=== PATIENT | female | born 1950 | race Caucasian/White ===

== ENCOUNTER 2018-06-18 11:03 | Inpatient (IN) ==
[2018-06-18] MEDS ORDERED: methylPREDNISolone SOD SUC 40 MG/1 ML VIAL IV STA (12:14)
[2018-06-18] MEDS ORDERED: ALBUTEROL/IPRATROPIUM 3 ML NEB RESP TX STA (12:14)
[2018-06-18 12:49] LABS: Basophils % 0.3 % (0.0-0.8); Hematocrit 31.3 VOL% (35.7-47.0); Hemoglobin 9.8 GM/DL (12.0-16.0); Immature Granulocytes % 0.9 %; Immature Granulocytes Absolute 0.13 #; Lymphocytes # 1.5 10*3/uL (1.4-4.0); Lymphocytes % 10.5 % (21.3-54.2); Mean Corpuscular HGB Conc 31.3 GM/DL (32-36); Mean Corpuscular Volume 94.3 FL (87-102); Mean Platelet Volume 12.2 FL (9.6-12.0); Monocytes % 6.9 % (1.7-12.7); Neutrophils % 81.4 % (38.7-73.9); Platelet Count 156 T/CUMM (130-400); Red Blood Count 3.32 MC/CUMM (3.8-5.5); Red Cell Distribution Width 13.8 % (9.3-17.3); White Blood Count 14.1 T/CUMM (4-12)
[2018-06-18 13:03] LABS: Calcium 8.4 MG/DL (8.5-10.1); Osmolality,Calculated 284.8 MOS/KG (273-304)
[2018-06-18] MEDS ORDERED: AZITHROMYCIN INJ 500 MG in SODIUM CHLORIDE 0.9% 250 ML IV STA (14:36)
[2018-06-18] MEDS ORDERED: cefTRIAXone 1,000 MG in SODIUM CHLORIDE 0.9% 100 ML IV STA (14:36)
[2018-06-18 15:35] LABS: Basophils % 0.2 % (0.0-0.8); Hematocrit 27.9 VOL% (35.7-47.0); Hemoglobin 8.6 GM/DL (12.0-16.0); Immature Granulocytes % 1.8 %; Immature Granulocytes Absolute 0.23 #; Lymphocytes # 0.9 10*3/uL (1.4-4.0); Lymphocytes % 7.2 % (21.3-54.2); Mean Corpuscular HGB Conc 30.8 GM/DL (32-36); Mean Corpuscular Volume 94.6 FL (87-102); Mean Platelet Volume 11.4 FL (9.6-12.0); Monocytes % 4.4 % (1.7-12.7); Neutrophils % 86.4 % (38.7-73.9); Platelet Count 134 T/CUMM (130-400); Red Blood Count 2.95 MC/CUMM (3.8-5.5); Red Cell Distribution Width 13.6 % (9.3-17.3); White Blood Count 12.8 T/CUMM (4-12)
[2018-06-18] MEDS ORDERED: ONDANSETRON 4 MG/2 ML VIAL IV PRN (15:44)
[2018-06-18] MEDS ORDERED: guaiFENesin/DM ER 600-30 MG TABLET PO PRN (15:44)
[2018-06-18] MEDS ORDERED: GLUCAGON 1 MG VIAL IM PRN (15:44)
[2018-06-18] MEDS ORDERED: DEXTROSE 50% 25 GM/50 ML SYRINGE IV PRN (15:44)
[2018-06-18] MEDS ORDERED: ACETAMINOPHEN 325 MG TABLET PO PRN (15:44)
[2018-06-18] MEDS ORDERED: ALBUTEROL/IPRATROPIUM 3 ML NEB RESP TX PRN (15:44)
[2018-06-18 15:53] LABS: Anisocytosis 3+; Platelet Estimate Adequate; Polychromasia 1+
[2018-06-18] MEDS: SODIUM CHLORIDE 0.9% 1,000 ML IV SCH (16:21)
[2018-06-18 16:26] LABS: Folate 10.1 NG/ML (5.4-24.0); Vitamin B12 238 PG/ML (211-911)
[2018-06-18 16:43] LABS: Sedimentation Rate-Westergren 124 MM/HR (0-30)
[2018-06-18 17:08] LABS: % Iron Saturation 6.8 % (18-50)
[2018-06-18] MEDS: INSULIN LISPRO 100 UNIT/ML SUBCUT SCH ×2 (17:37→20:32)
[2018-06-18] MEDS: CYANOCOBALAMIN 1000 MCG/1 ML VIAL IM SCH (18:24)
[2018-06-19] MEDS: SODIUM CHLORIDE 0.9% 1,000 ML IV SCH ×3 (02:58→23:32)
[2018-06-19 05:41] LABS: Basophils % 0.1 % (0.0-0.8); Hematocrit 27.3 VOL% (35.7-47.0); Hemoglobin 8.2 GM/DL (12.0-16.0); Immature Granulocytes Absolute 0.13 #; Lymphocytes % 7.4 % (21.3-54.2); Mean Corpuscular Volume 96.8 FL (87-102); Mean Platelet Volume 12.3 FL (9.6-12.0); Monocytes % 3.5 % (1.7-12.7); Platelet Count 144 T/CUMM (130-400); Red Blood Count 2.82 MC/CUMM (3.8-5.5); Red Cell Distribution Width 13.6 % (9.3-17.3)
[2018-06-19 06:09] LABS: Calcium 8.4 MG/DL (8.5-10.1); Osmolality,Calculated 296.4 MOS/KG (273-304); Thyroid Stimulating Hormone 1.28 uIU/ml (0.358-3.74)
[2018-06-19 06:39] LABS: Anisocytosis 1+; Lymphocytes 6 % (20-55); Platelet Estimate Adequate; Segmented Neutrophils 90 % (50-85); Total Cells Counted 100
[2018-06-19] MEDS: INSULIN LISPRO 100 UNIT/ML SUBCUT SCH ×4 (08:46→21:05)
[2018-06-19] MEDS ORDERED: FERROUS SULFATE 325 MG TABLET PO SCH (09:00)
[2018-06-19] MEDS ORDERED: LOSARTAN 50 MG TABLET PO SCH (09:00)
[2018-06-19] MEDS: ROSUVASTATIN 10 MG TABLET PO SCH (09:51)
[2018-06-19] MEDS: PANTOPRAZOLE 40 MG TABLET PO SCH (09:52)
[2018-06-19] MEDS: ISOSORBIDE MONONITRATE 30 MG TABLET PO SCH (09:52)
[2018-06-19] MEDS: IRON SUCROSE 200 MG in SODIUM CHLORIDE 0.9% 100 ML IV SCH (09:53)
[2018-06-19] MEDS: amLODIPine 10 MG TABLET PO SCH (09:53)
[2018-06-19] MEDS: CARVEDILOL 12.5 MG TABLET PO SCH ×2 (09:53→21:05)
[2018-06-19] MEDS: CYANOCOBALAMIN 1000 MCG/1 ML VIAL IM SCH (09:53)
[2018-06-19 12:07] LABS: Segmented Neutrophils 82 % (50-85)
[2018-06-19 12:08] LABS: Eosinophils 2 % (0-10); Lymphocytes 8 % (20-55); Total Cells Counted 100
[2018-06-19] MEDS ORDERED: AZITHROMYCIN INJ 500 MG in SODIUM CHLORIDE 0.9% 250 ML IV SCH (15:00)
[2018-06-19] MEDS: ALBUTEROL/IPRATROPIUM 3 ML NEB RESP TX SCH ×2 (15:43→19:24)
[2018-06-19] MEDS: cefTRIAXone 1,000 MG in SYRINGE 1 EACH IV SCH (17:13)
[2018-06-19] MEDS: CITALOPRAM 40 MG TABLET PO SCH (21:05)
[2018-06-20] MEDS: ALBUTEROL/IPRATROPIUM 3 ML NEB RESP TX SCH ×7 (00:37→22:38)
[2018-06-20 05:48] LABS: Basophils % 0.2 % (0.0-0.8); Eosinophils % 0.3 % (0.00-10.9); Hematocrit 27.2 VOL% (35.7-47.0); Hemoglobin 8.1 GM/DL (12.0-16.0); Immature Granulocytes % 0.9 %; Lymphocytes # 1.7 10*3/uL (1.4-4.0); Lymphocytes % 15.9 % (21.3-54.2); Mean Corpuscular HGB Conc 29.8 GM/DL (32-36); Mean Corpuscular Volume 97.5 FL (87-102); Mean Platelet Volume 11.7 FL (9.6-12.0); Monocytes % 4.9 % (1.7-12.7); Neutrophils % 77.8 % (38.7-73.9); Platelet Count 177 T/CUMM (130-400); Red Blood Count 2.79 MC/CUMM (3.8-5.5); Red Cell Distribution Width 13.5 % (9.3-17.3); White Blood Count 10.9 T/CUMM (4-12)
[2018-06-20 06:00] LABS: Calcium 8.6 MG/DL (8.5-10.1)
[2018-06-20] MEDS: INSULIN LISPRO 100 UNIT/ML SUBCUT SCH ×4 (08:00→23:10)
[2018-06-20 08:04] LABS: Hemoglobin A1 (Alkaline) 97.5 % (96.5-98.5); Hemoglobin A2 (Alkaline) 2.5 % (1.5-3.5)
[2018-06-20] MEDS: CYANOCOBALAMIN 1000 MCG/1 ML VIAL IM SCH (09:33)
[2018-06-20] MEDS: amLODIPine 10 MG TABLET PO SCH (09:34)
[2018-06-20] MEDS: AZITHROMYCIN 250 MG TABLET PO SCH (09:34)
[2018-06-20] MEDS: PANTOPRAZOLE 40 MG TABLET PO SCH (09:34)
[2018-06-20] MEDS: ISOSORBIDE MONONITRATE 30 MG TABLET PO SCH (09:34)
[2018-06-20] MEDS: ROSUVASTATIN 10 MG TABLET PO SCH (09:34)
[2018-06-20] MEDS: CARVEDILOL 12.5 MG TABLET PO SCH ×2 (09:34→22:15)
[2018-06-20] MEDS: IRON SUCROSE 200 MG in SODIUM CHLORIDE 0.9% 100 ML IV SCH (10:03)
[2018-06-20] MEDS: SODIUM CHLORIDE 0.9% 1,000 ML IV SCH (10:04)
[2018-06-20] MEDS: cefTRIAXone 1,000 MG in SYRINGE 1 EACH IV SCH (14:07)
[2018-06-20] MEDS: CITALOPRAM 40 MG TABLET PO SCH (22:15)
[2018-06-21] MEDS: ALBUTEROL/IPRATROPIUM 3 ML NEB RESP TX SCH ×5 (02:37→20:18)
[2018-06-21 05:42] LABS: Basophils % 0.3 % (0.0-0.8); Eosinophils # 0.1 10*3/uL (0.0-0.87); Hematocrit 27.7 VOL% (35.7-47.0); Hemoglobin 8.2 GM/DL (12.0-16.0); Immature Granulocytes % 2.1 %; Immature Granulocytes Absolute 0.18 #; Lymphocytes # 1.8 10*3/uL (1.4-4.0); Lymphocytes % 20.7 % (21.3-54.2); Mean Corpuscular HGB Conc 29.6 GM/DL (32-36); Mean Corpuscular Volume 96.5 FL (87-102); Mean Platelet Volume 11.6 FL (9.6-12.0); Monocytes % 7.8 % (1.7-12.7); NRBC # 0.02 10*3/uL; Neutrophils % 68.1 % (38.7-73.9); Platelet Count 197 T/CUMM (130-400); Red Blood Count 2.87 MC/CUMM (3.8-5.5); Red Cell Distribution Width 13.9 % (9.3-17.3); White Blood Count 8.7 T/CUMM (4-12)
[2018-06-21 05:56] LABS: Calcium 8.9 MG/DL (8.5-10.1); Osmolality,Calculated 294.1 MOS/KG (273-304)
[2018-06-21] MEDS: IRON SUCROSE 200 MG in SODIUM CHLORIDE 0.9% 100 ML IV SCH (09:21)
[2018-06-21] MEDS: AZITHROMYCIN 250 MG TABLET PO SCH (09:21)
[2018-06-21] MEDS: ROSUVASTATIN 10 MG TABLET PO SCH (09:21)
[2018-06-21] MEDS: PANTOPRAZOLE 40 MG TABLET PO SCH (09:22)
[2018-06-21] MEDS: ISOSORBIDE MONONITRATE 30 MG TABLET PO SCH (09:22)
[2018-06-21] MEDS: CARVEDILOL 12.5 MG TABLET PO SCH ×2 (09:22→21:45)
[2018-06-21] MEDS: INSULIN LISPRO 100 UNIT/ML SUBCUT SCH ×4 (09:22→21:57)
[2018-06-21] MEDS: amLODIPine 10 MG TABLET PO SCH (09:22)
[2018-06-21] MEDS: CYANOCOBALAMIN 1000 MCG/1 ML VIAL IM SCH (11:58)
[2018-06-21] MEDS: BUDESONIDE/FORMOTEROL 160-4.5 INHALER 6 GM INH SCH ×2 (11:58→21:47)
[2018-06-21] MEDS ORDERED: guaiFENesin/CODEINE 5 ML LIQUID PO PRN (12:28)
[2018-06-21] MEDS: cefTRIAXone 1,000 MG in SYRINGE 1 EACH IV SCH (15:06)
[2018-06-21] MEDS: CITALOPRAM 40 MG TABLET PO SCH (21:45)
[2018-06-22] MEDS: ALBUTEROL/IPRATROPIUM 3 ML NEB RESP TX SCH ×4 (00:16→10:30)
[2018-06-22] MEDS: INSULIN LISPRO 100 UNIT/ML SUBCUT SCH ×2 (07:53→11:45)
[2018-06-22] MEDS: PANTOPRAZOLE 40 MG TABLET PO SCH (09:03)
[2018-06-22] MEDS: CARVEDILOL 12.5 MG TABLET PO SCH (09:03)
[2018-06-22] MEDS: ISOSORBIDE MONONITRATE 30 MG TABLET PO SCH (09:03)
[2018-06-22] MEDS: ROSUVASTATIN 10 MG TABLET PO SCH (09:03)
[2018-06-22] MEDS: AZITHROMYCIN 250 MG TABLET PO SCH (09:03)
[2018-06-22] MEDS: amLODIPine 10 MG TABLET PO SCH (09:04)
[2018-06-22] MEDS: BUDESONIDE/FORMOTEROL 160-4.5 INHALER 6 GM INH SCH (09:04)
[2018-06-22] MEDS: CYANOCOBALAMIN 1000 MCG/1 ML VIAL IM SCH (09:05)
[2018-06-22] MEDS: IRON SUCROSE 200 MG in SODIUM CHLORIDE 0.9% 100 ML IV SCH (09:07)
[2018-06-22] MEDS ORDERED: hydrALAZINE 20 MG/1 ML VIAL IV PRN (10:05)
[2018-06-22 11:39] VITALS: BP 124/54
[2018-06-22] MEDS ORDERED: CARVEDILOL 12.5 MG TABLET PO SCH (21:00)
== END 2018-06-22 12:00 | disposition home health service (06) | DRG 190 ==
LOC: N.ED 11:03 → N.EDINP 15:44 → N.5E 17:30
PROVIDERS: ADMIT Internal Medicine; ATTEND Internal Medicine

== ENCOUNTER 2019-12-18 06:10 | Observation (INO) ==
[2019-12-18] MEDS ORDERED: ASPIRIN 325 MG TABLET PO STA (06:19)
[2019-12-18] MEDS ORDERED: ENOXAPARIN 100 MG/ML SYRINGE SUBCUT STA (06:19)
[2019-12-18] MEDS ORDERED: ALUM/MAG/SIMETH/LIDO VISC 1:1 30 ML BOTTLE PO STA (06:19)
[2019-12-18] MEDS ORDERED: NITROGLYCERIN 2% OINT 1 INCH/GM PACK TOP STA (06:19)
[2019-12-18 06:44] LABS: Basophils % 0.2 % (0.0-0.8); Eosinophils # 0.2 10*3/uL (0.0-0.87); Eosinophils % 2.6 % (0.00-10.9); Hematocrit 26.7 VOL% (35.7-47.0); Hemoglobin 8.3 GM/DL (12.0-16.0); Immature Granulocytes % 1.4 %; Immature Granulocytes Absolute 0.09 #; Lymphocytes # 2.1 10*3/uL (1.4-4.0); Lymphocytes % 32.4 % (21.3-54.2); Mean Corpuscular HGB Conc 31.1 GM/DL (32-36); Mean Corpuscular Volume 94.7 FL (87-102); Mean Platelet Volume 12.2 FL (9.6-12.0); Monocytes % 8.2 % (1.7-12.7); Neutrophils % 55.2 % (38.7-73.9); Platelet Count 118 T/CUMM (130-400); Red Blood Count 2.82 MC/CUMM (3.8-5.5); Red Cell Distribution Width 13.5 % (9.3-17.3); White Blood Count 6.6 T/CUMM (4-12)
[2019-12-18 07:00] LABS: Bacteria,Urine Occasional /HPF (Few); Bilirubin,Urine Negative (Negative); Blood, Urine Negative (Negative); Glucose,Urine (UA) 50 mg/dL (Negative); Ketones,Urine Negative (Negative); Mucus,Urine Occasional /LPF (Occasional); Nitrite,Urine Negative (Negative); Protein,Urine >=500 MG/DL; RBC,Urine 1 /HPF (0-4); Squamous Epithelial Cell,Urine Occasional /HPF (0-10); Urine Appearance CLEAR (Clear); Urine Color Straw (Yellow); Urine Specific Gravity 1.008 (1.001-1.035); Urine Urobilinogen < 2.0 EU/DL (0.2-1.0); WBC,Urine 4 /HPF (0-6)
[2019-12-18 07:16] LABS: Alanine Aminotransferase 9 U/L (13-56); Albumin 1.8 G/DL (3.4-5.0); Alkaline Phosphatase 92 U/L (45-117); Aspartate Amino Transferase 6 U/L (0-37); Bilirubin,Total < 0.39 MG/DL (0.2-1.0); Blood Urea Nitrogen 43 MG/DL (7-18); Calcium 7.7 MG/DL (8.5-10.1); Estimated Glom Filtration Rate 16 ML/MIN; Glucose 141 MG/DL (74-106); Osmolality,Calculated 291.4 MOS/KG (273-304); Total Protein 5.2 G/DL (6.4-8.3)
[2019-12-18 07:22] LABS: Barbiturates Screen,Urine Negative (Negative); Benzodiazepines Screen,Urine Negative (Negative); Cannabinoid Screen,Urine Negative (Negative); Opiate Screen,Urine Negative (Negative); Phencyclidine Screen,Urine Negative (Negative)
[2019-12-18] MEDS ORDERED: GLUCAGON 1 MG VIAL IM PRN (07:48)
[2019-12-18] MEDS ORDERED: DEXTROSE 50% 25 GM/50 ML VIAL IV PRN (07:48)
[2019-12-18 07:51] LABS: PT Patient Result 10.9 SECS (9.8-11.9); Partial Thromboplastin Time 32.7 SECS (23.9-33.8)
[2019-12-18] MEDS: SODIUM CHLORIDE 0.9% 1,000 ML IV SCH ×2 (08:00→22:05)
[2019-12-18] MEDS: INSULIN LISPRO 100 UNIT/ML SUBCUT SCH ×3 (12:37→22:30)
[2019-12-18] MEDS: ACETAMINOPHEN 325 MG TABLET PO PRN ×2 (14:20→23:58)
[2019-12-18] MEDS: ONDANSETRON 4 MG/2 ML VIAL IV PRN (14:25)
[2019-12-18] MEDS ORDERED: hydrALAZINE 20 MG/1 ML VIAL IV PRN (14:44)
[2019-12-18] MEDS: carvediloL 6.25 MG TABLET PO SCH ×2 (17:20→20:19)
[2019-12-18] MEDS ORDERED: ALBUTEROL/IPRATROPIUM 3 ML NEB RESP TX PRN (18:01)
[2019-12-18] MEDS: NITROGLYCERIN SL 0.4 MG TABLET SL PRN (19:42)
[2019-12-18] MEDS: ISOSORBIDE MONONITRATE 30 MG TABLET PO SCH (22:01)
[2019-12-19] MEDS: NITROGLYCERIN SL 0.4 MG TABLET SL PRN (00:03)
[2019-12-19] MEDS ORDERED: ALUM/MAG/SIMETH/LIDO VISC 1:1 30 ML BOTTLE PO ONE (02:16)
[2019-12-19] MEDS: ACETAMINOPHEN 325 MG TABLET PO PRN ×4 (04:13→21:39)
[2019-12-19 05:41] LABS: Basophils % 0.3 % (0.0-0.8); Eosinophils # 0.1 10*3/uL (0.0-0.87); Eosinophils % 1.3 % (0.00-10.9); Hematocrit 23.9 VOL% (35.7-47.0); Hemoglobin 7.6 GM/DL (12.0-16.0); Immature Granulocytes % 0.7 %; Immature Granulocytes Absolute 0.05 #; Lymphocytes # 1.4 10*3/uL (1.4-4.0); Lymphocytes % 20.3 % (21.3-54.2); Mean Corpuscular HGB Conc 31.8 GM/DL (32-36); Mean Corpuscular Volume 93.4 FL (87-102); Mean Platelet Volume 12.1 FL (9.6-12.0); Monocytes % 8.3 % (1.7-12.7); Neutrophils % 69.1 % (38.7-73.9); Platelet Count 109 T/CUMM (130-400); Red Blood Count 2.56 MC/CUMM (3.8-5.5); Red Cell Distribution Width 13.2 % (9.3-17.3); White Blood Count 6.7 T/CUMM (4-12)
[2019-12-19 05:51] LABS: Calcium 8.1 MG/DL (8.5-10.1); Osmolality,Calculated 288.8 MOS/KG (273-304)
[2019-12-19 05:54] LABS: Calcium 8.1 MG/DL (8.5-10.1); Osmolality,Calculated 287.8 MOS/KG (273-304)
[2019-12-19] MEDS ORDERED: MAGNESIUM SULF RIDER 2 GM in PREMIX 1 EACH IV PRN ×2 (06:35→11:40)
[2019-12-19] MEDS ORDERED: MAGNESIUM SULF RIDER 4 GM in PREMIX 1 EACH IV PRN ×2 (06:35→11:40)
[2019-12-19] MEDS: ROSUVASTATIN 10 MG TABLET PO SCH (08:40)
[2019-12-19] MEDS: MONTELUKAST 10 MG TABLET PO SCH (08:40)
[2019-12-19] MEDS: PANTOPRAZOLE 40 MG TABLET PO SCH ×2 (08:40→21:39)
[2019-12-19] MEDS: ASPIRIN CHEW 81 MG TABLET PO SCH (08:41)
[2019-12-19] MEDS: carvediloL 6.25 MG TABLET PO SCH ×2 (08:43→21:42)
[2019-12-19] MEDS: INSULIN LISPRO 100 UNIT/ML SUBCUT SCH ×4 (08:49→21:39)
[2019-12-19] MEDS: SODIUM CHLORIDE 0.9% 1,000 ML IV SCH (15:08)
[2019-12-19] MEDS: ONDANSETRON 4 MG/2 ML VIAL IV PRN (15:29)
[2019-12-19] MEDS ORDERED: CITALOPRAM 20 MG TABLET PO SCH (21:00)
[2019-12-19] MEDS: ISOSORBIDE MONONITRATE 30 MG TABLET PO SCH (21:39)
[2019-12-20] MEDS: ONDANSETRON 4 MG/2 ML VIAL IV PRN (01:45)
[2019-12-20] MEDS: SODIUM CHLORIDE 0.9% 1,000 ML IV SCH (01:45)
[2019-12-20 06:52] LABS: Basophils % 0.3 % (0.0-0.8); Eosinophils # 0.3 10*3/uL (0.0-0.87); Eosinophils % 5.4 % (0.00-10.9); Hematocrit 24.9 VOL% (35.7-47.0); Hemoglobin 7.8 GM/DL (12.0-16.0); Immature Granulocytes % 0.3 %; Immature Granulocytes Absolute 0.02 #; Lymphocytes # 1.6 10*3/uL (1.4-4.0); Lymphocytes % 28.1 % (21.3-54.2); Mean Corpuscular HGB Conc 31.3 GM/DL (32-36); Mean Corpuscular Volume 94.3 FL (87-102); Mean Platelet Volume 12.8 FL (9.6-12.0); Monocytes % 8.5 % (1.7-12.7); Neutrophils % 57.4 % (38.7-73.9); Platelet Count 133 T/CUMM (130-400); Red Blood Count 2.64 MC/CUMM (3.8-5.5); Red Cell Distribution Width 13.3 % (9.3-17.3); White Blood Count 5.8 T/CUMM (4-12)
[2019-12-20 07:10] LABS: Calcium 8.4 MG/DL (8.5-10.1); Osmolality,Calculated 288.7 MOS/KG (273-304)
[2019-12-20 07:12] LABS: Calcium 8.3 MG/DL (8.5-10.1); Osmolality,Calculated 287.8 MOS/KG (273-304)
[2019-12-20] MEDS: INSULIN LISPRO 100 UNIT/ML SUBCUT SCH ×2 (09:20→12:35)
[2019-12-20] MEDS: MONTELUKAST 10 MG TABLET PO SCH (09:20)
[2019-12-20] MEDS: ASPIRIN CHEW 81 MG TABLET PO SCH (09:20)
[2019-12-20] MEDS: ROSUVASTATIN 10 MG TABLET PO SCH (09:20)
[2019-12-20] MEDS: carvediloL 6.25 MG TABLET PO SCH (09:20)
[2019-12-20] MEDS: PANTOPRAZOLE 40 MG TABLET PO SCH (09:20)
[2019-12-20] MEDS ORDERED: FUROSEMIDE 40 MG TABLET PO SCH (09:30)
[2019-12-20] MEDS ORDERED: carvediloL 12.5 MG TABLET PO ONE (10:34)
[2019-12-20] MEDS ORDERED: carvediloL 6.25 MG TABLET PO ONE (10:35)
[2019-12-20 13:57] VITALS: BP 151/77
== END 2019-12-20 13:06 | disposition home or self-care (01) ==
LOC: EDBD → EDUNIT# → N.ED 06:10 → N.EDINP 06:10 → N.TELES 08:14
PROVIDERS: ADMIT Internal Medicine Geriatric Medicine; ATTEND Internal Medicine Geriatric Medicine

== ENCOUNTER 2019-12-26 14:12 | Inpatient (IN) ==
[2019-12-26 15:12] LABS: Basophils % 0.6 % (0.0-0.8); Eosinophils # 0.2 10*3/uL (0.0-0.87); Eosinophils % 3.4 % (0.00-10.9); Hematocrit 30.1 VOL% (35.7-47.0); Hemoglobin 9.1 GM/DL (12.0-16.0); Immature Granulocytes % 1.1 %; Immature Granulocytes Absolute 0.07 #; Lymphocytes # 1.6 10*3/uL (1.4-4.0); Lymphocytes % 26.4 % (21.3-54.2); Mean Corpuscular HGB Conc 30.2 GM/DL (32-36); Mean Corpuscular Volume 95.3 FL (87-102); Mean Platelet Volume 10.6 FL (9.6-12.0); Monocytes % 6.1 % (1.7-12.7); Neutrophils % 62.4 % (38.7-73.9); Platelet Count 284 T/CUMM (130-400); Red Blood Count 3.16 MC/CUMM (3.8-5.5); Red Cell Distribution Width 13.2 % (9.3-17.3); White Blood Count 6.2 T/CUMM (4-12)
[2019-12-26 15:47] LABS: Alanine Aminotransferase 10 U/L (13-56); Albumin 1.9 G/DL (3.4-5.0); Alkaline Phosphatase 115 U/L (45-117); Aspartate Amino Transferase 9 U/L (0-37); Bilirubin,Total < 0.39 MG/DL (0.2-1.0); Blood Urea Nitrogen 35 MG/DL (7-18); Calcium 8.7 MG/DL (8.5-10.1); Estimated Glom Filtration Rate 22 ML/MIN; Glucose 173 MG/DL (74-106); Osmolality,Calculated 292.3 MOS/KG (273-304); Total Protein 6.7 G/DL (6.4-8.3)
[2019-12-26] MEDS ORDERED: hydrALAZINE 20 MG/1 ML VIAL IV STA (16:44)
[2019-12-26] MEDS ORDERED: FUROSEMIDE 40 MG/4 ML VIAL IV STA (17:09)
[2019-12-26 17:18] LABS: PT Patient Result 10.7 SECS (9.8-11.9); Partial Thromboplastin Time 32.2 SECS (23.9-33.8)
[2019-12-26] MEDS ORDERED: ONDANSETRON 4 MG/2 ML VIAL ONE (18:35)
[2019-12-26] MEDS ORDERED: INSULIN REGULAR 10 UNIT, CALCIUM GLUCONATE 1,000 MG in DEXTROSE 10% 250 ML IV ONE (19:38)
[2019-12-26] MEDS ORDERED: cloNIDine 0.1 MG TABLET PO STA (19:42)
[2019-12-26] MEDS ORDERED: carvediloL 3.125 MG TABLET PO STA (19:42)
[2019-12-26] MEDS ORDERED: carvediloL 25 MG TABLET PO STA (20:03)
[2019-12-26] MEDS ORDERED: hydrALAZINE 20 MG/1 ML VIAL IV PRN (20:51)
[2019-12-26] MEDS ORDERED: DEXTROSE 50% 25 GM/50 ML VIAL IV PRN (20:51)
[2019-12-26] MEDS ORDERED: GLUCAGON 1 MG VIAL IM PRN (20:51)
[2019-12-26] MEDS ORDERED: NITROGLYCERIN SL 0.4 MG TABLET SL PRN (21:04)
[2019-12-26] MEDS: ACETAMINOPHEN 325 MG TABLET PO PRN (22:05)
[2019-12-26] MEDS: INSULIN REGULAR 100 UNIT/ML SUBCUT SCH (22:09)
[2019-12-27] MEDS: ALBUTEROL/IPRATROPIUM 3 ML NEB RESP TX SCH ×4 (01:01→19:35)
[2019-12-27 04:31] LABS: Hemoglobin 8.6 GM/DL (12.0-16.0)
[2019-12-27] MEDS ORDERED: INSULIN REGULAR 10 UNIT, CALCIUM GLUCONATE 1,000 MG in DEXTROSE 10% 250 ML IV ONE (05:02)
[2019-12-27] MEDS ORDERED: SODIUM POLYSTYRENE SULFATE 15 GM/60 ML BOTTLE PO ONE ×2 (05:05→08:02)
[2019-12-27] MEDS: ONDANSETRON 4 MG/2 ML VIAL IV PRN ×2 (06:35→20:57)
[2019-12-27] MEDS ORDERED: DEXTROSE 50% 25 GM/50 ML SYRINGE IV ONE (06:55)
[2019-12-27] MEDS: INSULIN REGULAR 100 UNIT/ML SUBCUT SCH ×3 (07:56→17:41)
[2019-12-27] MEDS ORDERED: DICLOFENAC SODIUM 75 MG TABLET PO SCH (09:00)
[2019-12-27 09:14] LABS: Hematocrit 36.3 VOL% (35.7-47.0); Hemoglobin 11.1 GM/DL (12.0-16.0)
[2019-12-27] MEDS: ASPIRIN CHEW 81 MG TABLET PO SCH ×2 (09:15→20:57)
[2019-12-27] MEDS: FUROSEMIDE 40 MG/4 ML VIAL IV SCH ×2 (09:15→17:40)
[2019-12-27] MEDS: PANTOPRAZOLE 40 MG TABLET PO SCH ×2 (09:15→20:58)
[2019-12-27] MEDS: cloNIDine 0.1 MG TABLET PO SCH ×2 (09:15→20:58)
[2019-12-27] MEDS: MONTELUKAST 10 MG TABLET PO SCH (10:30)
[2019-12-27] MEDS: carvediloL 25 MG TABLET PO SCH ×2 (10:30→20:58)
[2019-12-27 10:48] LABS: Alanine Aminotransferase < 9 U/L (13-56); Albumin 1.9 G/DL (3.4-5.0); Alkaline Phosphatase 112 U/L (45-117); Aspartate Amino Transferase 12 U/L (0-37); Bilirubin,Total < 0.39 MG/DL (0.2-1.0); Blood Urea Nitrogen 35 MG/DL (7-18); Calcium 9.5 MG/DL (8.5-10.1); Estimated Glom Filtration Rate 19 ML/MIN; Glucose 63 MG/DL (74-106); Osmolality,Calculated 282.5 MOS/KG (273-304); Total Protein 6.5 G/DL (6.4-8.3)
[2019-12-27 13:44] LABS: Hematocrit 29.4 VOL% (35.7-47.0)
[2019-12-27 13:50] LABS: Hemoglobin 8.9 GM/DL (12.0-16.0)
[2019-12-27] MEDS ORDERED: INFLUENZA VIRUS VACCINE 0.5 ML SYRINGE IM ONE (17:12)
[2019-12-27 18:52] LABS: Hematocrit 27.9 VOL% (35.7-47.0); Hemoglobin 8.4 GM/DL (12.0-16.0)
[2019-12-27] MEDS: ISOSORBIDE MONONITRATE 30 MG TABLET PO SCH (20:57)
[2019-12-27] MEDS: CITALOPRAM 40 MG TABLET PO SCH (20:58)
[2019-12-27] MEDS: ROSUVASTATIN 10 MG TABLET PO SCH (20:58)
[2019-12-28] MEDS: ALBUTEROL/IPRATROPIUM 3 ML NEB RESP TX SCH ×4 (01:05→19:55)
[2019-12-28] MEDS: INSULIN REGULAR 100 UNIT/ML SUBCUT SCH ×5 (01:46→21:28)
[2019-12-28 05:38] LABS: Basophils % 0.5 % (0.0-0.8); Eosinophils # 0.2 10*3/uL (0.0-0.87); Eosinophils % 3.8 % (0.00-10.9); Hematocrit 25.7 VOL% (35.7-47.0); Hemoglobin 7.8 GM/DL (12.0-16.0); Immature Granulocytes % 0.5 %; Immature Granulocytes Absolute 0.03 #; Lymphocytes # 2.4 10*3/uL (1.4-4.0); Mean Corpuscular HGB Conc 30.4 GM/DL (32-36); Mean Corpuscular Volume 96.3 FL (87-102); Mean Platelet Volume 10.5 FL (9.6-12.0); Monocytes % 7.3 % (1.7-12.7); Neutrophils % 45.9 % (38.7-73.9); Platelet Count 241 T/CUMM (130-400); Red Blood Count 2.67 MC/CUMM (3.8-5.5); White Blood Count 5.6 T/CUMM (4-12)
[2019-12-28 06:00] LABS: Albumin 1.7 G/DL (3.4-5.0); Osmolality,Calculated 295.1 MOS/KG (273-304)
[2019-12-28] MEDS ORDERED: SODIUM POLYSTYRENE SULFATE 15 GM/60 ML BOTTLE PO STA (07:54)
[2019-12-28] MEDS: FUROSEMIDE 40 MG/4 ML VIAL IV SCH ×2 (08:49→16:58)
[2019-12-28] MEDS: cloNIDine 0.1 MG TABLET PO SCH ×2 (08:49→21:28)
[2019-12-28] MEDS: ASPIRIN CHEW 81 MG TABLET PO SCH ×2 (08:49→21:28)
[2019-12-28] MEDS: PANTOPRAZOLE 40 MG TABLET PO SCH ×2 (08:50→21:28)
[2019-12-28] MEDS: MONTELUKAST 10 MG TABLET PO SCH (08:50)
[2019-12-28] MEDS: carvediloL 25 MG TABLET PO SCH ×2 (08:50→21:28)
[2019-12-28] MEDS: hydrALAZINE 25 MG TABLET PO SCH ×2 (14:52→21:27)
[2019-12-28] MEDS: INSULIN LISPRO 100 UNIT/ML SUBCUT SCH (16:58)
[2019-12-28] MEDS: CITALOPRAM 40 MG TABLET PO SCH (21:27)
[2019-12-28] MEDS: ISOSORBIDE MONONITRATE 30 MG TABLET PO SCH (21:28)
[2019-12-28] MEDS: ROSUVASTATIN 10 MG TABLET PO SCH (21:28)
[2019-12-28] MEDS: ENOXAPARIN 40 MG/0.4 ML SYRINGE SUBCUT SCH (21:28)
[2019-12-29 00:44] LABS: Bacteria,Urine Occasional /HPF (Few); Bilirubin,Urine Negative (Negative); Blood, Urine Negative (Negative); Glucose,Urine (UA) 50 mg/dL (Negative); Hyaline Casts,Urine 3 /LPF (0-3); Ketones,Urine Negative (Negative); Mucus,Urine Occasional /LPF (Occasional); Nitrite,Urine Negative (Negative); Protein,Urine >=500 MG/DL; RBC,Urine 1 /HPF (0-4); Squamous Epithelial Cell,Urine Occasional /HPF (0-10); Urine Appearance CLEAR (Clear); Urine Color Straw (Yellow); Urine Specific Gravity 1.008 (1.001-1.035); Urine Urobilinogen < 2.0 EU/DL (0.2-1.0); WBC,Urine 1 /HPF (0-6)
[2019-12-29] MEDS: ALBUTEROL/IPRATROPIUM 3 ML NEB RESP TX SCH ×4 (01:43→20:11)
[2019-12-29 06:14] LABS: Albumin 1.7 G/DL (3.4-5.0); Calcium 7.4 MG/DL (8.5-10.1); Osmolality,Calculated 300.8 MOS/KG (273-304)
[2019-12-29] MEDS: INSULIN REGULAR 100 UNIT/ML SUBCUT SCH ×4 (09:43→22:43)
[2019-12-29] MEDS: carvediloL 25 MG TABLET PO SCH ×2 (10:31→21:08)
[2019-12-29] MEDS: cloNIDine 0.1 MG TABLET PO SCH ×2 (10:31→21:08)
[2019-12-29] MEDS: MONTELUKAST 10 MG TABLET PO SCH (10:32)
[2019-12-29] MEDS: ASPIRIN CHEW 81 MG TABLET PO SCH ×2 (10:32→21:07)
[2019-12-29] MEDS: FUROSEMIDE 40 MG TABLET PO SCH (10:33)
[2019-12-29] MEDS: PANTOPRAZOLE 40 MG TABLET PO SCH ×2 (10:33→21:07)
[2019-12-29] MEDS: hydrALAZINE 25 MG TABLET PO SCH (10:33)
[2019-12-29] MEDS: INSULIN LISPRO 100 UNIT/ML SUBCUT SCH ×3 (10:35→16:46)
[2019-12-29] MEDS: CITALOPRAM 40 MG TABLET PO SCH (21:08)
[2019-12-29] MEDS: ROSUVASTATIN 10 MG TABLET PO SCH (21:08)
[2019-12-29] MEDS: ISOSORBIDE MONONITRATE 30 MG TABLET PO SCH (21:08)
[2019-12-29] MEDS: ENOXAPARIN 40 MG/0.4 ML SYRINGE SUBCUT SCH (21:09)
[2019-12-29] MEDS: ACETAMINOPHEN 325 MG TABLET PO PRN (21:15)
[2019-12-30] MEDS: ALBUTEROL/IPRATROPIUM 3 ML NEB RESP TX SCH ×4 (01:30→19:25)
[2019-12-30] MEDS: FUROSEMIDE 40 MG TABLET PO SCH (08:34)
[2019-12-30] MEDS: PANTOPRAZOLE 40 MG TABLET PO SCH ×2 (08:34→21:04)
[2019-12-30] MEDS: ASPIRIN CHEW 81 MG TABLET PO SCH ×2 (08:34→21:04)
[2019-12-30] MEDS: INSULIN LISPRO 100 UNIT/ML SUBCUT SCH ×3 (08:35→16:25)
[2019-12-30] MEDS: MONTELUKAST 10 MG TABLET PO SCH (08:35)
[2019-12-30] MEDS: carvediloL 25 MG TABLET PO SCH ×2 (08:35→21:04)
[2019-12-30] MEDS: cloNIDine 0.1 MG TABLET PO SCH ×2 (08:35→21:03)
[2019-12-30] MEDS: INSULIN REGULAR 100 UNIT/ML SUBCUT SCH ×4 (08:35→21:05)
[2019-12-30 10:43] LABS: Basophils % 0.4 % (0.0-0.8); Eosinophils # 0.2 10*3/uL (0.0-0.87); Eosinophils % 4.1 % (0.00-10.9); Hematocrit 24.7 VOL% (35.7-47.0); Hemoglobin 7.8 GM/DL (12.0-16.0); Immature Granulocytes % 1.5 %; Immature Granulocytes Absolute 0.08 #; Lymphocytes # 1.7 10*3/uL (1.4-4.0); Lymphocytes % 32.8 % (21.3-54.2); Mean Corpuscular HGB Conc 31.6 GM/DL (32-36); Mean Corpuscular Volume 93.6 FL (87-102); Mean Platelet Volume 10.6 FL (9.6-12.0); Monocytes % 7.5 % (1.7-12.7); Neutrophils % 53.7 % (38.7-73.9); Platelet Count 218 T/CUMM (130-400); Red Blood Count 2.64 MC/CUMM (3.8-5.5); Red Cell Distribution Width 13.8 % (9.3-17.3); White Blood Count 5.2 T/CUMM (4-12)
[2019-12-30 13:51] LABS: Calcium 7.8 MG/DL (8.5-10.1); Osmolality,Calculated 293.4 MOS/KG (273-304)
[2019-12-30] MEDS: FERROUS GLUCONATE 324 MG TABLET PO SCH (21:03)
[2019-12-30] MEDS: ROSUVASTATIN 10 MG TABLET PO SCH (21:03)
[2019-12-30] MEDS: ISOSORBIDE MONONITRATE 30 MG TABLET PO SCH (21:04)
[2019-12-30] MEDS: ACETAMINOPHEN 325 MG TABLET PO PRN (21:04)
[2019-12-30] MEDS: CITALOPRAM 40 MG TABLET PO SCH (21:05)
[2019-12-30] MEDS: ENOXAPARIN 30 MG/0.3 ML SYRINGE SUBCUT SCH (21:06)
[2019-12-31] MEDS: ALBUTEROL/IPRATROPIUM 3 ML NEB RESP TX SCH ×4 (00:55→20:05)
[2019-12-31] MEDS: ACETAMINOPHEN 325 MG TABLET PO PRN ×2 (01:10→22:44)
[2019-12-31 06:58] LABS: Basophils % 0.4 % (0.0-0.8); Eosinophils # 0.2 10*3/uL (0.0-0.87); Eosinophils % 3.7 % (0.00-10.9); Hematocrit 22.6 VOL% (35.7-47.0); Immature Granulocytes % 1.3 %; Immature Granulocytes Absolute 0.06 #; Lymphocytes # 1.8 10*3/uL (1.4-4.0); Lymphocytes % 39.7 % (21.3-54.2); Mean Corpuscular Volume 94.2 FL (87-102); Mean Platelet Volume 11.6 FL (9.6-12.0); Monocytes % 8.1 % (1.7-12.7); Neutrophils % 46.8 % (38.7-73.9); Platelet Count 190 T/CUMM (130-400); Red Cell Distribution Width 13.7 % (9.3-17.3); White Blood Count 4.6 T/CUMM (4-12)
[2019-12-31 07:11] LABS: Calcium 7.9 MG/DL (8.5-10.1); Osmolality,Calculated 293.4 MOS/KG (273-304)
[2019-12-31 07:11] LABS: % Iron Saturation 23.2 % (18-50)
[2019-12-31 07:15] LABS: Alkaline Phosphatase 77 U/L (45-117); Aspartate Amino Transferase 9 U/L (0-37); Calcium 7.9 MG/DL (8.5-10.1)
[2019-12-31 07:16] LABS: Alanine Aminotransferase < 9 U/L (13-56); Albumin 1.8 G/DL (3.4-5.0); Blood Urea Nitrogen 50 MG/DL (7-18); Estimated Glom Filtration Rate 15 ML/MIN; Glucose 140 MG/DL (74-106); Osmolality,Calculated 293.4 MOS/KG (273-304); Total Protein 5.2 G/DL (6.4-8.3)
[2019-12-31] MEDS: INSULIN REGULAR 100 UNIT/ML SUBCUT SCH ×4 (09:38→22:45)
[2019-12-31] MEDS: cloNIDine 0.1 MG TABLET PO SCH ×2 (09:38→22:44)
[2019-12-31] MEDS: ASPIRIN CHEW 81 MG TABLET PO SCH ×2 (09:38→22:50)
[2019-12-31] MEDS: carvediloL 25 MG TABLET PO SCH ×2 (09:38→22:43)
[2019-12-31] MEDS: INSULIN LISPRO 100 UNIT/ML SUBCUT SCH ×3 (09:38→17:19)
[2019-12-31] MEDS: MONTELUKAST 10 MG TABLET PO SCH (09:38)
[2019-12-31] MEDS: PANTOPRAZOLE 40 MG TABLET PO SCH ×2 (09:39→22:43)
[2019-12-31] MEDS: FERROUS GLUCONATE 324 MG TABLET PO SCH ×2 (09:39→22:43)
[2019-12-31] MEDS: FUROSEMIDE 40 MG TABLET PO SCH ×2 (09:39)
[2019-12-31 11:29] LABS: Basophils % 0.4 % (0.0-0.8); Eosinophils # 0.2 10*3/uL (0.0-0.87); Hematocrit 25.9 VOL% (35.7-47.0); Immature Granulocytes % 1.9 %; Immature Granulocytes Absolute 0.09 #; Lymphocytes # 1.6 10*3/uL (1.4-4.0); Lymphocytes % 33.3 % (21.3-54.2); Mean Corpuscular HGB Conc 30.9 GM/DL (32-36); Mean Corpuscular Volume 95.2 FL (87-102); Monocytes % 7.4 % (1.7-12.7); Platelet Count 208 T/CUMM (130-400); Red Blood Count 2.72 MC/CUMM (3.8-5.5); Red Cell Distribution Width 13.9 % (9.3-17.3); White Blood Count 4.7 T/CUMM (4-12)
[2019-12-31 11:41] LABS: PT Patient Result 10.5 SECS (9.8-11.9); Partial Thromboplastin Time 31.9 SECS (23.9-33.8)
[2019-12-31] MEDS: SODIUM CHLORIDE 0.9% 1,000 ML IV SCH ×2 (11:41→13:25)
[2019-12-31 12:00] LABS: Alanine Aminotransferase < 9 U/L (13-56); Albumin 1.9 G/DL (3.4-5.0); Alkaline Phosphatase 84 U/L (45-117); Aspartate Amino Transferase 10 U/L (0-37); Bilirubin,Total < 0.39 MG/DL (0.2-1.0); Blood Urea Nitrogen 49 MG/DL (7-18); Estimated Glom Filtration Rate 16 ML/MIN; Glucose 159 MG/DL (74-106); Osmolality,Calculated 292.5 MOS/KG (273-304); Total Protein 5.8 G/DL (6.4-8.3)
[2019-12-31] MEDS ORDERED: GLUCAGON 1 MG VIAL IM PRN (15:28)
[2019-12-31] MEDS ORDERED: DEXTROSE 50% 25 GM/50 ML VIAL IV PRN (15:28)
[2019-12-31] MEDS: ROSUVASTATIN 10 MG TABLET PO SCH (22:43)
[2019-12-31] MEDS: CITALOPRAM 40 MG TABLET PO SCH (22:43)
[2019-12-31] MEDS: ISOSORBIDE MONONITRATE 30 MG TABLET PO SCH (22:44)
[2019-12-31] MEDS: ENOXAPARIN 30 MG/0.3 ML SYRINGE SUBCUT SCH (22:45)
[2020-01-01] MEDS: ALBUTEROL/IPRATROPIUM 3 ML NEB RESP TX SCH ×5 (01:40→19:29)
[2020-01-01 05:59] LABS: Basophils % 0.4 % (0.0-0.8); Eosinophils # 0.2 10*3/uL (0.0-0.87); Eosinophils % 4.3 % (0.00-10.9); Hematocrit 23.2 VOL% (35.7-47.0); Hemoglobin 7.1 GM/DL (12.0-16.0); Immature Granulocytes % 1.9 %; Immature Granulocytes Absolute 0.09 #; Lymphocytes # 1.8 10*3/uL (1.4-4.0); Lymphocytes % 39.6 % (21.3-54.2); Mean Corpuscular HGB Conc 30.6 GM/DL (32-36); Mean Corpuscular Volume 95.9 FL (87-102); Mean Platelet Volume 11.5 FL (9.6-12.0); Monocytes % 8.6 % (1.7-12.7); Neutrophils % 45.2 % (38.7-73.9); Platelet Count 194 T/CUMM (130-400); Red Blood Count 2.42 MC/CUMM (3.8-5.5); Red Cell Distribution Width 14.1 % (9.3-17.3); White Blood Count 4.7 T/CUMM (4-12)
[2020-01-01 06:25] LABS: Calcium 7.9 MG/DL (8.5-10.1)
[2020-01-01] MEDS: LACTATED RINGERS 1,000 ML IV SCH (07:51)
[2020-01-01] MEDS ORDERED: SODIUM CHLORIDE 0.9% 1,000 ML IV PRN (08:16)
[2020-01-01] MEDS ORDERED: FUROSEMIDE 20 MG/2 ML VIAL IV PRN (08:16)
[2020-01-01] MEDS ORDERED: LIDOCAINE 2% 5 ML VIAL ONE (09:00)
[2020-01-01] MEDS ORDERED: ETOMIDATE 20 MG/10 ML VIAL IV ONE (09:00)
[2020-01-01] MEDS ORDERED: propofoL 200 MG/20 ML VIAL IV ONE (09:00)
[2020-01-01] MEDS: INSULIN REGULAR 100 UNIT/ML SUBCUT SCH ×4 (09:38→21:13)
[2020-01-01] MEDS: FERROUS GLUCONATE 324 MG TABLET PO SCH ×2 (09:43→21:12)
[2020-01-01] MEDS: MONTELUKAST 10 MG TABLET PO SCH (09:44)
[2020-01-01] MEDS: ASPIRIN CHEW 81 MG TABLET PO SCH ×2 (09:45→21:12)
[2020-01-01] MEDS: FUROSEMIDE 40 MG TABLET PO SCH ×2 (09:45→09:46)
[2020-01-01] MEDS: cloNIDine 0.1 MG TABLET PO SCH ×2 (09:45→21:12)
[2020-01-01] MEDS: PANTOPRAZOLE 40 MG TABLET PO SCH (09:45)
[2020-01-01] MEDS: carvediloL 25 MG TABLET PO SCH ×2 (09:45→21:12)
[2020-01-01] MEDS: ONDANSETRON 4 MG/2 ML VIAL IV PRN (09:48)
[2020-01-01] MEDS: INSULIN LISPRO 100 UNIT/ML SUBCUT SCH ×3 (10:32→18:45)
[2020-01-01] MEDS ORDERED: LORazepam 2 MG/1 ML VIAL IV ONE (11:34)
[2020-01-01] MEDS: SODIUM CHLORIDE 0.9% 1,000 ML IV SCH ×2 (18:44→21:08)
[2020-01-01] MEDS: ISOSORBIDE MONONITRATE 30 MG TABLET PO SCH (21:12)
[2020-01-01] MEDS: ROSUVASTATIN 10 MG TABLET PO SCH (21:12)
[2020-01-01] MEDS: CITALOPRAM 40 MG TABLET PO SCH (21:12)
[2020-01-02] MEDS: ALBUTEROL/IPRATROPIUM 3 ML NEB RESP TX SCH ×4 (02:33→20:49)
[2020-01-02 06:47] LABS: Basophils % 0.4 % (0.0-0.8); Eosinophils # 0.2 10*3/uL (0.0-0.87); Eosinophils % 4.1 % (0.00-10.9); Hematocrit 26.8 VOL% (35.7-47.0); Hemoglobin 8.2 GM/DL (12.0-16.0); Immature Granulocytes % 1.3 %; Immature Granulocytes Absolute 0.07 #; Lymphocytes # 1.8 10*3/uL (1.4-4.0); Lymphocytes % 32.8 % (21.3-54.2); Mean Corpuscular HGB Conc 30.6 GM/DL (32-36); Mean Corpuscular Volume 94.7 FL (87-102); Mean Platelet Volume 11.7 FL (9.6-12.0); Monocytes % 7.8 % (1.7-12.7); Neutrophils % 53.6 % (38.7-73.9); Platelet Count 184 T/CUMM (130-400); Red Blood Count 2.83 MC/CUMM (3.8-5.5); Red Cell Distribution Width 15.5 % (9.3-17.3); White Blood Count 5.4 T/CUMM (4-12)
[2020-01-02 07:07] LABS: Calcium 7.8 MG/DL (8.5-10.1); Osmolality,Calculated 297.3 MOS/KG (273-304)
[2020-01-02 07:21] LABS: Folate 8.1 NG/ML (5.4-24.0); Vitamin B12 327 PG/ML (211-911)
[2020-01-02 07:43] LABS: Sedimentation Rate-Westergren 100 MM/HR (0-30)
[2020-01-02] MEDS: INSULIN REGULAR 100 UNIT/ML SUBCUT SCH ×4 (09:36→21:08)
[2020-01-02] MEDS: carvediloL 25 MG TABLET PO SCH ×2 (09:37→21:07)
[2020-01-02] MEDS: MONTELUKAST 10 MG TABLET PO SCH (09:37)
[2020-01-02] MEDS: cloNIDine 0.1 MG TABLET PO SCH ×2 (09:37→21:07)
[2020-01-02] MEDS: ASPIRIN CHEW 81 MG TABLET PO SCH ×2 (09:37→21:07)
[2020-01-02] MEDS: PANTOPRAZOLE 40 MG TABLET PO SCH (09:38)
[2020-01-02] MEDS: FUROSEMIDE 40 MG TABLET PO SCH ×2 (09:38→09:40)
[2020-01-02] MEDS: FERROUS GLUCONATE 324 MG TABLET PO SCH ×2 (09:39→21:07)
[2020-01-02] MEDS: INSULIN LISPRO 100 UNIT/ML SUBCUT SCH ×3 (09:39→16:17)
[2020-01-02 10:55] LABS: Bacteria,Urine Occasional /HPF (Few); Bilirubin,Urine Negative (Negative); Blood, Urine Negative (Negative); Glucose,Urine (UA) 50 mg/dL (Negative); Ketones,Urine Negative (Negative); Mucus,Urine Occasional /LPF (Occasional); Nitrite,Urine Negative (Negative); Protein,Urine >=500 MG/DL; RBC,Urine 1 /HPF (0-4); Squamous Epithelial Cell,Urine Occasional /HPF (0-10); Urine Appearance CLEAR (Clear); Urine Color Yellow (Yellow); Urine Specific Gravity 1.012 (1.001-1.035); Urine Urobilinogen < 2.0 EU/DL (0.2-1.0); WBC,Urine 1 /HPF (0-6)
[2020-01-02] MEDS: LACTATED RINGERS 1,000 ML IV SCH (12:17)
[2020-01-02] MEDS: ACETAMINOPHEN 325 MG TABLET PO PRN (12:48)
[2020-01-02] MEDS: POLYETHYLENE GLYCOL POWDER 17 GM PACK PO SCH ×2 (16:17→21:08)
[2020-01-02] MEDS: SODIUM CHLORIDE 0.9% 1,000 ML IV SCH (18:46)
[2020-01-02] MEDS: ROSUVASTATIN 10 MG TABLET PO SCH (21:07)
[2020-01-02] MEDS: CITALOPRAM 40 MG TABLET PO SCH (21:07)
[2020-01-02] MEDS: ISOSORBIDE MONONITRATE 30 MG TABLET PO SCH (21:07)
[2020-01-02] MEDS: DOCUSATE SODIUM 100 MG CAPSULE PO SCH (21:11)
[2020-01-02] MEDS: SENNA 8.6 MG TABLET PO SCH (21:11)
[2020-01-03] MEDS: ALBUTEROL/IPRATROPIUM 3 ML NEB RESP TX SCH ×4 (01:25→19:28)
[2020-01-03 06:16] LABS: Basophils % 0.4 % (0.0-0.8); Eosinophils # 0.2 10*3/uL (0.0-0.87); Eosinophils % 5.1 % (0.00-10.9); Hematocrit 27.3 VOL% (35.7-47.0); Hemoglobin 8.5 GM/DL (12.0-16.0); Immature Granulocytes % 1.1 %; Immature Granulocytes Absolute 0.05 #; Lymphocytes # 1.8 10*3/uL (1.4-4.0); Lymphocytes % 38.6 % (21.3-54.2); Mean Corpuscular HGB Conc 31.1 GM/DL (32-36); Mean Corpuscular Volume 92.9 FL (87-102); Mean Platelet Volume 12.3 FL (9.6-12.0); Monocytes % 7.6 % (1.7-12.7); Neutrophils % 47.2 % (38.7-73.9); Platelet Count 165 T/CUMM (130-400); Red Blood Count 2.94 MC/CUMM (3.8-5.5); White Blood Count 4.7 T/CUMM (4-12)
[2020-01-03 06:38] LABS: Calcium 8.2 MG/DL (8.5-10.1); Osmolality,Calculated 296.4 MOS/KG (273-304)
[2020-01-03 08:14] LABS: Hemoglobin A1 (Alkaline) 97.6 % (96.5-98.5); Hemoglobin A2 (Alkaline) 2.4 % (1.5-3.5)
[2020-01-03] MEDS: carvediloL 25 MG TABLET PO SCH ×2 (08:15→21:04)
[2020-01-03] MEDS: cloNIDine 0.1 MG TABLET PO SCH ×2 (08:15→21:04)
[2020-01-03] MEDS: FUROSEMIDE 40 MG TABLET PO SCH ×2 (08:15→08:16)
[2020-01-03] MEDS: PANTOPRAZOLE 40 MG TABLET PO SCH (08:15)
[2020-01-03] MEDS: ASPIRIN CHEW 81 MG TABLET PO SCH ×2 (08:15→21:03)
[2020-01-03] MEDS: POLYETHYLENE GLYCOL POWDER 17 GM PACK PO SCH ×2 (08:16→21:05)
[2020-01-03] MEDS: LACTATED RINGERS 1,000 ML IV SCH (08:16)
[2020-01-03] MEDS: INSULIN REGULAR 100 UNIT/ML SUBCUT SCH ×4 (08:16→21:03)
[2020-01-03] MEDS: DOCUSATE SODIUM 100 MG CAPSULE PO SCH ×2 (08:16→21:03)
[2020-01-03] MEDS: FERROUS GLUCONATE 324 MG TABLET PO SCH ×2 (08:16→21:07)
[2020-01-03] MEDS: MONTELUKAST 10 MG TABLET PO SCH (08:17)
[2020-01-03] MEDS: INSULIN LISPRO 100 UNIT/ML SUBCUT SCH ×3 (08:17→16:03)
[2020-01-03] MEDS: LINACLOTIDE 145 MCG CAPSULE PO SCH (09:32)
[2020-01-03] MEDS: SODIUM CHLORIDE 0.9% 1,000 ML IV SCH ×2 (09:34)
[2020-01-03] MEDS ORDERED: SODIUM PHOSPHATE ENEMA 133 ML BOTTLE RECTAL PRN (18:19)
[2020-01-03] MEDS: SENNA 8.6 MG TABLET PO SCH (21:03)
[2020-01-03] MEDS: CITALOPRAM 40 MG TABLET PO SCH (21:03)
[2020-01-03] MEDS: ROSUVASTATIN 10 MG TABLET PO SCH (21:03)
[2020-01-03] MEDS: ISOSORBIDE MONONITRATE 30 MG TABLET PO SCH (21:04)
[2020-01-04] MEDS: ALBUTEROL/IPRATROPIUM 3 ML NEB RESP TX SCH ×4 (00:05→20:18)
[2020-01-04 05:28] LABS: Basophils % 0.6 % (0.0-0.8); Eosinophils # 0.2 10*3/uL (0.0-0.87); Eosinophils % 3.3 % (0.00-10.9); Hematocrit 25.7 VOL% (35.7-47.0); Immature Granulocytes % 1.1 %; Immature Granulocytes Absolute 0.06 #; Lymphocytes # 1.7 10*3/uL (1.4-4.0); Lymphocytes % 33.1 % (21.3-54.2); Mean Corpuscular HGB Conc 31.1 GM/DL (32-36); Mean Corpuscular Volume 92.4 FL (87-102); Mean Platelet Volume 11.8 FL (9.6-12.0); Monocytes % 6.5 % (1.7-12.7); Neutrophils % 55.4 % (38.7-73.9); Platelet Count 192 T/CUMM (130-400); Red Blood Count 2.78 MC/CUMM (3.8-5.5); White Blood Count 5.2 T/CUMM (4-12)
[2020-01-04 05:41] LABS: Osmolality,Calculated 300.3 MOS/KG (273-304)
[2020-01-04] MEDS: POLYETHYLENE GLYCOL POWDER 17 GM PACK PO SCH ×2 (08:37→21:42)
[2020-01-04] MEDS: LINACLOTIDE 145 MCG CAPSULE PO SCH (08:39)
[2020-01-04] MEDS: MONTELUKAST 10 MG TABLET PO SCH (08:40)
[2020-01-04] MEDS: cloNIDine 0.1 MG TABLET PO SCH ×2 (08:40→21:15)
[2020-01-04] MEDS: ASPIRIN CHEW 81 MG TABLET PO SCH ×2 (08:40→21:15)
[2020-01-04] MEDS: PANTOPRAZOLE 40 MG TABLET PO SCH (08:40)
[2020-01-04] MEDS: DOCUSATE SODIUM 100 MG CAPSULE PO SCH ×2 (08:41→21:15)
[2020-01-04] MEDS: carvediloL 25 MG TABLET PO SCH ×2 (08:41→21:15)
[2020-01-04] MEDS: FUROSEMIDE 40 MG TABLET PO SCH ×2 (08:42→08:44)
[2020-01-04] MEDS: FERROUS GLUCONATE 324 MG TABLET PO SCH ×2 (08:43→21:15)
[2020-01-04] MEDS: INSULIN REGULAR 100 UNIT/ML SUBCUT SCH ×4 (08:44→21:14)
[2020-01-04] MEDS: INSULIN LISPRO 100 UNIT/ML SUBCUT SCH ×3 (08:45→16:53)
[2020-01-04] MEDS: LACTATED RINGERS 1,000 ML IV SCH (13:12)
[2020-01-04] MEDS: SODIUM CHLORIDE 0.9% 1,000 ML IV SCH ×2 (13:15→13:16)
[2020-01-04] MEDS: CITALOPRAM 40 MG TABLET PO SCH (21:15)
[2020-01-04] MEDS: ROSUVASTATIN 10 MG TABLET PO SCH (21:15)
[2020-01-04] MEDS: ISOSORBIDE MONONITRATE 30 MG TABLET PO SCH (21:42)
[2020-01-04] MEDS: ENOXAPARIN 30 MG/0.3 ML SYRINGE SUBCUT SCH (21:42)
[2020-01-04] MEDS: SENNA 8.6 MG TABLET PO SCH (21:42)
[2020-01-05] MEDS: ALBUTEROL/IPRATROPIUM 3 ML NEB RESP TX SCH ×5 (01:46→19:36)
[2020-01-05 05:16] LABS: Basophils % 0.4 % (0.0-0.8); Eosinophils # 0.2 10*3/uL (0.0-0.87); Eosinophils % 4.1 % (0.00-10.9); Hematocrit 26.5 VOL% (35.7-47.0); Hemoglobin 8.2 GM/DL (12.0-16.0); Immature Granulocytes % 0.8 %; Immature Granulocytes Absolute 0.04 #; Lymphocytes % 38.7 % (21.3-54.2); Mean Corpuscular HGB Conc 30.9 GM/DL (32-36); Mean Corpuscular Volume 93.3 FL (87-102); Mean Platelet Volume 12.4 FL (9.6-12.0); Monocytes % 6.1 % (1.7-12.7); Neutrophils % 49.9 % (38.7-73.9); Platelet Count 157 T/CUMM (130-400); Red Blood Count 2.84 MC/CUMM (3.8-5.5); Red Cell Distribution Width 14.8 % (9.3-17.3); White Blood Count 5.1 T/CUMM (4-12)
[2020-01-05 05:41] LABS: Calcium 8.1 MG/DL (8.5-10.1); Osmolality,Calculated 303.3 MOS/KG (273-304)
[2020-01-05] MEDS: cloNIDine 0.1 MG TABLET PO SCH ×2 (08:56→20:51)
[2020-01-05] MEDS: carvediloL 25 MG TABLET PO SCH ×2 (08:56→20:51)
[2020-01-05] MEDS: FERROUS GLUCONATE 324 MG TABLET PO SCH ×2 (08:56→20:51)
[2020-01-05] MEDS: FUROSEMIDE 40 MG TABLET PO SCH ×3 (08:56→17:30)
[2020-01-05] MEDS: MONTELUKAST 10 MG TABLET PO SCH (08:56)
[2020-01-05] MEDS: PANTOPRAZOLE 40 MG TABLET PO SCH (08:56)
[2020-01-05] MEDS: ASPIRIN CHEW 81 MG TABLET PO SCH ×2 (08:56→20:51)
[2020-01-05] MEDS: INSULIN REGULAR 100 UNIT/ML SUBCUT SCH ×4 (08:56→20:54)
[2020-01-05] MEDS: INSULIN LISPRO 100 UNIT/ML SUBCUT SCH ×3 (08:56→17:32)
[2020-01-05] MEDS: DOCUSATE SODIUM 100 MG CAPSULE PO SCH ×2 (08:56→20:51)
[2020-01-05] MEDS: POLYETHYLENE GLYCOL POWDER 17 GM PACK PO SCH ×3 (08:56→20:53)
[2020-01-05] MEDS: LINACLOTIDE 145 MCG CAPSULE PO SCH (09:00)
[2020-01-05] MEDS: ONDANSETRON 4 MG/2 ML VIAL IV PRN (17:24)
[2020-01-05] MEDS: SENNA 8.6 MG TABLET PO SCH (20:51)
[2020-01-05] MEDS: CITALOPRAM 40 MG TABLET PO SCH (20:51)
[2020-01-05] MEDS: ISOSORBIDE MONONITRATE 30 MG TABLET PO SCH (20:51)
[2020-01-05] MEDS: ENOXAPARIN 30 MG/0.3 ML SYRINGE SUBCUT SCH (20:51)
[2020-01-05] MEDS: ROSUVASTATIN 10 MG TABLET PO SCH (20:51)
[2020-01-06] MEDS: ALBUTEROL/IPRATROPIUM 3 ML NEB RESP TX SCH ×4 (00:07→20:03)
[2020-01-06 05:29] LABS: Basophils % 0.8 % (0.0-0.8); Eosinophils # 0.2 10*3/uL (0.0-0.87); Eosinophils % 4.2 % (0.00-10.9); Hematocrit 26.3 VOL% (35.7-47.0); Hemoglobin 8.2 GM/DL (12.0-16.0); Immature Granulocytes % 0.6 %; Immature Granulocytes Absolute 0.03 #; Lymphocytes # 1.7 10*3/uL (1.4-4.0); Lymphocytes % 33.2 % (21.3-54.2); Mean Corpuscular HGB Conc 31.2 GM/DL (32-36); Mean Corpuscular Volume 91.6 FL (87-102); Mean Platelet Volume 11.4 FL (9.6-12.0); Monocytes % 6.6 % (1.7-12.7); Neutrophils % 54.6 % (38.7-73.9); Platelet Count 155 T/CUMM (130-400); Red Blood Count 2.87 MC/CUMM (3.8-5.5); Red Cell Distribution Width 14.7 % (9.3-17.3)
[2020-01-06 05:56] LABS: Calcium 8.5 MG/DL (8.5-10.1); Osmolality,Calculated 301.3 MOS/KG (273-304)
[2020-01-06] MEDS: INSULIN REGULAR 100 UNIT/ML SUBCUT SCH ×4 (07:43→21:54)
[2020-01-06] MEDS: MONTELUKAST 10 MG TABLET PO SCH (08:17)
[2020-01-06] MEDS: carvediloL 25 MG TABLET PO SCH ×2 (08:17→21:52)
[2020-01-06] MEDS: POLYETHYLENE GLYCOL POWDER 17 GM PACK PO SCH ×3 (08:17→21:51)
[2020-01-06] MEDS: DOCUSATE SODIUM 100 MG CAPSULE PO SCH ×2 (08:17→21:52)
[2020-01-06] MEDS: LINACLOTIDE 145 MCG CAPSULE PO SCH (08:17)
[2020-01-06] MEDS: ASPIRIN CHEW 81 MG TABLET PO SCH ×2 (08:17→21:52)
[2020-01-06] MEDS: FERROUS GLUCONATE 324 MG TABLET PO SCH ×2 (08:18→21:52)
[2020-01-06] MEDS: FUROSEMIDE 40 MG TABLET PO SCH ×2 (08:18→08:41)
[2020-01-06] MEDS: PANTOPRAZOLE 40 MG TABLET PO SCH (08:18)
[2020-01-06] MEDS: cloNIDine 0.1 MG TABLET PO SCH ×2 (08:18→21:51)
[2020-01-06] MEDS: INSULIN LISPRO 100 UNIT/ML SUBCUT SCH ×3 (08:24→17:23)
[2020-01-06] MEDS: ONDANSETRON 4 MG/2 ML VIAL IV PRN (17:25)
[2020-01-06] MEDS: SENNA 8.6 MG TABLET PO SCH (21:51)
[2020-01-06] MEDS: ISOSORBIDE MONONITRATE 30 MG TABLET PO SCH (21:52)
[2020-01-06] MEDS: CITALOPRAM 40 MG TABLET PO SCH (21:52)
[2020-01-06] MEDS: ENOXAPARIN 30 MG/0.3 ML SYRINGE SUBCUT SCH (21:53)
[2020-01-06] MEDS: ROSUVASTATIN 10 MG TABLET PO SCH (21:53)
[2020-01-07] MEDS: ALBUTEROL/IPRATROPIUM 3 ML NEB RESP TX SCH ×4 (01:57→19:48)
[2020-01-07] MEDS: INSULIN LISPRO 100 UNIT/ML SUBCUT SCH ×3 (08:32→16:47)
[2020-01-07] MEDS: INSULIN REGULAR 100 UNIT/ML SUBCUT SCH ×4 (08:33→20:49)
[2020-01-07] MEDS: LINACLOTIDE 145 MCG CAPSULE PO SCH (08:34)
[2020-01-07] MEDS: carvediloL 25 MG TABLET PO SCH ×2 (08:35→20:44)
[2020-01-07] MEDS: POLYETHYLENE GLYCOL POWDER 17 GM PACK PO SCH ×3 (08:35→20:43)
[2020-01-07] MEDS: FERROUS GLUCONATE 324 MG TABLET PO SCH ×2 (08:35→20:45)
[2020-01-07] MEDS: DOCUSATE SODIUM 100 MG CAPSULE PO SCH ×2 (08:35→20:43)
[2020-01-07] MEDS: PANTOPRAZOLE 40 MG TABLET PO SCH (08:35)
[2020-01-07] MEDS: ASPIRIN CHEW 81 MG TABLET PO SCH ×2 (08:35→20:43)
[2020-01-07] MEDS: metOLazone 2.5 MG TABLET PO SCH (08:35)
[2020-01-07] MEDS: MONTELUKAST 10 MG TABLET PO SCH (08:35)
[2020-01-07] MEDS: cloNIDine 0.1 MG TABLET PO SCH ×2 (08:35→20:43)
[2020-01-07] MEDS: FUROSEMIDE 40 MG TABLET PO SCH ×2 (10:01→20:44)
[2020-01-07] MEDS: ENOXAPARIN 30 MG/0.3 ML SYRINGE SUBCUT SCH (20:43)
[2020-01-07] MEDS: SENNA 8.6 MG TABLET PO SCH (20:43)
[2020-01-07] MEDS: ROSUVASTATIN 10 MG TABLET PO SCH (20:44)
[2020-01-07] MEDS: CITALOPRAM 40 MG TABLET PO SCH (20:44)
[2020-01-07] MEDS: ISOSORBIDE MONONITRATE 30 MG TABLET PO SCH (20:44)
[2020-01-07] MEDS: ONDANSETRON 4 MG/2 ML VIAL IV PRN (21:00)
[2020-01-08] MEDS: ALBUTEROL/IPRATROPIUM 3 ML NEB RESP TX SCH ×2 (02:13→07:37)
[2020-01-08 03:47] LABS: Basophils % 0.4 % (0.0-0.8); Eosinophils # 0.2 10*3/uL (0.0-0.87); Eosinophils % 4.8 % (0.00-10.9); Hematocrit 24.9 VOL% (35.7-47.0); Hemoglobin 7.6 GM/DL (12.0-16.0); Immature Granulocytes % 0.7 %; Immature Granulocytes Absolute 0.03 #; Lymphocytes # 1.7 10*3/uL (1.4-4.0); Mean Corpuscular HGB Conc 30.5 GM/DL (32-36); Mean Corpuscular Volume 93.6 FL (87-102); Neutrophils % 49.1 % (38.7-73.9); Platelet Count 145 T/CUMM (130-400); Red Blood Count 2.66 MC/CUMM (3.8-5.5); Red Cell Distribution Width 14.6 % (9.3-17.3); White Blood Count 4.6 T/CUMM (4-12)
[2020-01-08 04:03] LABS: Calcium 8.1 MG/DL (8.5-10.1); Osmolality,Calculated 299.4 MOS/KG (273-304)
[2020-01-08] MEDS: INSULIN REGULAR 100 UNIT/ML SUBCUT SCH (08:04)
[2020-01-08 08:06] VITALS: BP 154/75
[2020-01-08] MEDS: INSULIN LISPRO 100 UNIT/ML SUBCUT SCH (08:45)
[2020-01-08] MEDS: POLYETHYLENE GLYCOL POWDER 17 GM PACK PO SCH (08:45)
[2020-01-08] MEDS: metOLazone 2.5 MG TABLET PO SCH (08:46)
[2020-01-08] MEDS: LINACLOTIDE 145 MCG CAPSULE PO SCH (08:46)
[2020-01-08] MEDS: PANTOPRAZOLE 40 MG TABLET PO SCH (08:46)
[2020-01-08] MEDS: cloNIDine 0.1 MG TABLET PO SCH (08:46)
[2020-01-08] MEDS: MONTELUKAST 10 MG TABLET PO SCH (08:46)
[2020-01-08] MEDS: FUROSEMIDE 40 MG TABLET PO SCH (08:46)
[2020-01-08] MEDS: carvediloL 25 MG TABLET PO SCH (08:46)
[2020-01-08] MEDS: ASPIRIN CHEW 81 MG TABLET PO SCH (08:46)
[2020-01-08] MEDS: DOCUSATE SODIUM 100 MG CAPSULE PO SCH (08:46)
[2020-01-08] MEDS: FERROUS GLUCONATE 324 MG TABLET PO SCH (08:46)
[2020-01-08] MEDS ORDERED: TUBERCULIN SKIN TEST 0.1 ML SYRINGE INTRADERM ONE (09:54)
== END 2020-01-08 11:06 | DRG 291 ==
LOC: N.EDINP 14:12 → N.ED 14:12 → N.4E 12-27 14:19 → SUATTDRO 12-29 10:04
PROVIDERS: ADMIT Internal Medicine; ATTEND Family Medicine

== ENCOUNTER 2020-03-07 21:40 | Inpatient (IN) ==
[2020-03-07] MEDS ORDERED: LEVOFLOXACIN INJ 500 MG in PREMIX 1 EACH IV STA (22:21)
[2020-03-07 22:39] LABS: Basophils % 0.3 % (0.0-0.8); Eosinophils # 0.1 10*3/uL (0.0-0.87); Eosinophils % 1.8 % (0.00-10.9); Hematocrit 26.9 VOL% (35.7-47.0); Immature Granulocytes % 1.2 %; Immature Granulocytes Absolute 0.09 #; Lymphocytes # 1.1 10*3/uL (1.4-4.0); Lymphocytes % 14.8 % (21.3-54.2); Mean Corpuscular HGB Conc 29.7 GM/DL (32-36); Mean Corpuscular Volume 99.3 FL (87-102); Monocytes % 4.8 % (1.7-12.7); Neutrophils % 77.1 % (38.7-73.9); Platelet Count 171 T/CUMM (130-400); Red Blood Count 2.71 MC/CUMM (3.8-5.5); White Blood Count 7.6 T/CUMM (4-12)
[2020-03-07 22:57] LABS: INR 0.9; PT Patient Result 10.2 SECS (9.8-11.9)
[2020-03-07] MEDS ORDERED: DEXAMETHASONE 10 MG/1 ML VIAL IV STA (23:03)
[2020-03-07 23:09] LABS: Alanine Aminotransferase 11 U/L (13-56); Albumin 2.5 G/DL (3.4-5.0); Alkaline Phosphatase 92 U/L (45-117); Aspartate Amino Transferase 7 U/L (0-37); Bilirubin,Total < 0.39 MG/DL (0.2-1.0); Blood Urea Nitrogen 55 MG/DL (7-18); Calcium 8.6 MG/DL (8.5-10.1); Carbon Dioxide 23 MMOL/L (21-32); Estimated Glom Filtration Rate 16 ML/MIN; Ferritin 124.6 ng/ml (8-252); Glucose 184 MG/DL (74-106); Osmolality,Calculated 294.7 MOS/KG (273-304); Sodium 138 MMOL/L (136-145); Total Protein 6.8 G/DL (6.4-8.3)
[2020-03-07 23:13] LABS: Potassium 6.8 MMOL/L (3.5-5.1)
[2020-03-07] MEDS ORDERED: ALBUTEROL/IPRATROPIUM 3 ML NEB RESP TX STA (23:33)
[2020-03-07] MEDS ORDERED: DEXTROSE 50% 25 GM/50 ML VIAL IV STA (23:35)
[2020-03-07] MEDS ORDERED: INSULIN REGULAR 100 UNIT/ML IV STA (23:35)
[2020-03-08] MEDS ORDERED: FUROSEMIDE 40 MG/4 ML VIAL IV STA ×2 (00:11→00:23)
[2020-03-08] MEDS ORDERED: ALBUTEROL 2.5 MG/3 ML NEB RESP TX PRN (02:28)
[2020-03-08] MEDS ORDERED: GLUCAGON 1 MG VIAL IM PRN (02:44)
[2020-03-08] MEDS ORDERED: DEXTROSE 50% 25 GM/50 ML VIAL IV PRN (02:44)
[2020-03-08] MEDS ORDERED: DOCUSATE SODIUM 100 MG CAPSULE PO PRN (02:58)
[2020-03-08 06:03] LABS: Basophils % 0.2 % (0.0-0.8); Eosinophils % 0.2 % (0.00-10.9); Hematocrit 27.4 VOL% (35.7-47.0); Hemoglobin 8.2 GM/DL (12.0-16.0); Immature Granulocytes % 1.6 %; Immature Granulocytes Absolute 0.08 #; Lymphocytes # 0.5 10*3/uL (1.4-4.0); Lymphocytes % 10.4 % (21.3-54.2); Mean Corpuscular HGB Conc 29.9 GM/DL (32-36); Mean Corpuscular Volume 99.3 FL (87-102); Mean Platelet Volume 11.6 FL (9.6-12.0); Neutrophils % 86.6 % (38.7-73.9); Platelet Count 162 T/CUMM (130-400); Red Blood Count 2.76 MC/CUMM (3.8-5.5); Red Cell Distribution Width 15.1 % (9.3-17.3)
[2020-03-08] MEDS ORDERED: ALBUTEROL/IPRATROPIUM 3 ML NEB RESP TX PRN (06:21)
[2020-03-08 06:26] LABS: Calcium 8.8 MG/DL (8.5-10.1); Osmolality,Calculated 296.3 MOS/KG (273-304)
[2020-03-08 06:29] LABS: Potassium 6.3 MMOL/L (3.5-5.1)
[2020-03-08] MEDS ORDERED: SODIUM POLYSTYRENE SULFATE 15 GM/60 ML BOTTLE PO ONE ×2 (06:31→14:23)
[2020-03-08] MEDS ORDERED: ALBUTEROL/IPRATROPIUM 3 ML NEB RESP TX SCH (07:00)
[2020-03-08] MEDS: ONDANSETRON 4 MG/2 ML VIAL IV PRN ×2 (08:48→20:49)
[2020-03-08] MEDS: INSULIN REGULAR 100 UNIT/ML SUBCUT SCH ×4 (08:48→23:34)
[2020-03-08] MEDS ORDERED: DEXAMETHASONE INJ 10 MG in SODIUM CHLORIDE 0.9% 50 ML IV SCH (09:00)
[2020-03-08] MEDS ORDERED: PANTOPRAZOLE 40 MG TABLET PO SCH (09:00)
[2020-03-08] MEDS ORDERED: NITROGLYCERIN SL 0.4 MG TABLET SL ONE ×2 (09:01→09:21)
[2020-03-08] MEDS: NITROGLYCERIN SL 0.4 MG TABLET SL PRN ×3 (09:01→10:16)
[2020-03-08] MEDS ORDERED: ASPIRIN CHEW 81 MG TABLET PO ONE (09:11)
[2020-03-08] MEDS ORDERED: ALUM/MAG/SIMETH/LIDO VISC 1:1 30 ML BOTTLE PO ONE ×2 (09:27→09:37)
[2020-03-08] MEDS ORDERED: NITROGLYCERIN SL 0.4 MG TABLET SL PRN (10:12)
[2020-03-08] MEDS: MORPHINE 4 MG/1 ML VIAL IV PRN ×3 (10:20→20:49)
[2020-03-08] MEDS: carvediloL 25 MG TABLET PO SCH ×2 (12:48→23:35)
[2020-03-08] MEDS: HYDROCORTISONE 25 MG SUPP RECTAL SCH ×2 (12:48→23:38)
[2020-03-08] MEDS: MONTELUKAST 10 MG TABLET PO SCH (12:48)
[2020-03-08] MEDS: PANTOPRAZOLE 40 MG VIAL IV SCH ×2 (12:53→23:34)
[2020-03-08] MEDS: POLYETHYLENE GLYCOL POWDER 17 GM PACK PO SCH (13:06)
[2020-03-08] MEDS: ALBUTEROL/IPRATROPIUM 3 ML NEB RESP TX SCH ×2 (13:50→19:20)
[2020-03-08 15:49] LABS: Troponin I 0.029 NG/ML (0.00-0.045)
[2020-03-08] MEDS: HEPARIN 5,000 UNIT/1 ML VIAL SUBCUT SCH ×2 (17:13→23:34)
[2020-03-08] MEDS: FUROSEMIDE 40 MG/4 ML VIAL IV SCH (17:15)
[2020-03-08] MEDS ORDERED: methylPREDNISolone SOD SUC 40 MG/1 ML VIAL IV SCH (21:00)
[2020-03-08] MEDS ORDERED: LEVOFLOXACIN INJ 750 MG in PREMIX 1 EACH IV SCH (23:00)
[2020-03-08] MEDS: DOCUSATE SODIUM 100 MG CAPSULE PO SCH (23:34)
[2020-03-08] MEDS: ROSUVASTATIN 10 MG TABLET PO SCH (23:35)
[2020-03-08] MEDS: ISOSORBIDE MONONITRATE 30 MG TABLET PO SCH (23:35)
[2020-03-08] MEDS: CITALOPRAM 40 MG TABLET PO SCH (23:37)
[2020-03-09] MEDS: ALBUTEROL/IPRATROPIUM 3 ML NEB RESP TX SCH ×4 (00:26→20:55)
[2020-03-09 06:08] LABS: Basophils % 0.3 % (0.0-0.8); Eosinophils # 0.1 10*3/uL (0.0-0.87); Eosinophils % 1.1 % (0.00-10.9); Hematocrit 22.4 VOL% (35.7-47.0); Hemoglobin 6.9 GM/DL (12.0-16.0); Immature Granulocytes % 0.6 %; Immature Granulocytes Absolute 0.04 #; Lymphocytes # 1.8 10*3/uL (1.4-4.0); Lymphocytes % 29.1 % (21.3-54.2); Mean Corpuscular HGB Conc 30.8 GM/DL (32-36); Mean Corpuscular Volume 97.8 FL (87-102); Mean Platelet Volume 11.3 FL (9.6-12.0); Monocytes % 7.1 % (1.7-12.7); Neutrophils % 61.8 % (38.7-73.9); Platelet Count 166 T/CUMM (130-400); Red Blood Count 2.29 MC/CUMM (3.8-5.5); Red Cell Distribution Width 15.1 % (9.3-17.3); White Blood Count 6.2 T/CUMM (4-12)
[2020-03-09 06:33] LABS: Osmolality,Calculated 289.7 MOS/KG (273-304); Potassium 3.9 MMOL/L (3.5-5.1)
[2020-03-09] MEDS: INSULIN REGULAR 100 UNIT/ML SUBCUT SCH ×3 (08:38→17:31)
[2020-03-09] MEDS: HEPARIN 5,000 UNIT/1 ML VIAL SUBCUT SCH ×3 (08:39→23:12)
[2020-03-09] MEDS: DOCUSATE SODIUM 100 MG CAPSULE PO SCH ×2 (09:02→22:58)
[2020-03-09] MEDS: FUROSEMIDE 40 MG/4 ML VIAL IV SCH ×3 (09:02→17:31)
[2020-03-09] MEDS: HYDROCORTISONE 25 MG SUPP RECTAL SCH ×2 (09:02→23:01)
[2020-03-09] MEDS: carvediloL 25 MG TABLET PO SCH ×2 (09:02→22:59)
[2020-03-09] MEDS: POLYETHYLENE GLYCOL POWDER 17 GM PACK PO SCH (09:02)
[2020-03-09] MEDS: MONTELUKAST 10 MG TABLET PO SCH (09:02)
[2020-03-09] MEDS: PANTOPRAZOLE 40 MG VIAL IV SCH ×2 (09:05→21:45)
[2020-03-09] MEDS ORDERED: SODIUM CHLORIDE 0.9% 1,000 ML IV PRN (09:12)
[2020-03-09] MEDS ORDERED: ALUM/MAG/SIMETH/LIDO VISC 1:1 30 ML BOTTLE PO ONE (14:43)
[2020-03-09 15:36] LABS: Troponin I 0.098 NG/ML (0.00-0.045)
[2020-03-09] MEDS: MORPHINE 4 MG/1 ML VIAL IV PRN (20:48)
[2020-03-09] MEDS: ONDANSETRON 4 MG/2 ML VIAL IV PRN (20:49)
[2020-03-09] MEDS ORDERED: ASPIRIN CHEW 81 MG TABLET PO SCH (21:00)
[2020-03-09] MEDS ORDERED: LEVOFLOXACIN INJ 500 MG in PREMIX 1 EACH IV SCH (21:00)
[2020-03-09] MEDS ORDERED: FUROSEMIDE 40 MG/4 ML VIAL IV ONE (21:31)
[2020-03-09] MEDS: LEVOFLOXACIN INJ 500 MG in PREMIX 1 EACH IV SCH (21:59)
[2020-03-09] MEDS: ISOSORBIDE MONONITRATE 30 MG TABLET PO SCH (22:57)
[2020-03-09] MEDS: ROSUVASTATIN 10 MG TABLET PO SCH (22:57)
[2020-03-09] MEDS: CITALOPRAM 40 MG TABLET PO SCH (22:57)
[2020-03-09 23:23] LABS: Troponin I 0.087 NG/ML (0.00-0.045)
[2020-03-10] MEDS: INSULIN REGULAR 100 UNIT/ML SUBCUT SCH ×5 (00:02→23:03)
[2020-03-10] MEDS: ALBUTEROL/IPRATROPIUM 3 ML NEB RESP TX SCH ×4 (02:18→19:30)
[2020-03-10 02:28] LABS: Troponin I 0.078 NG/ML (0.00-0.045)
[2020-03-10] MEDS: ACETAMINOPHEN 325 MG TABLET PO PRN (05:33)
[2020-03-10 06:33] LABS: Troponin I 0.079 NG/ML (0.00-0.045)
[2020-03-10 07:37] LABS: Basophils % 0.2 % (0.0-0.8); Eosinophils # 0.2 10*3/uL (0.0-0.87); Eosinophils % 3.4 % (0.00-10.9); Hematocrit 26.2 VOL% (35.7-47.0); Hemoglobin 8.5 GM/DL (12.0-16.0); Immature Granulocytes % 0.8 %; Immature Granulocytes Absolute 0.04 #; Lymphocytes # 1.3 10*3/uL (1.4-4.0); Lymphocytes % 25.4 % (21.3-54.2); Mean Corpuscular HGB Conc 32.4 GM/DL (32-36); Mean Corpuscular Volume 93.2 FL (87-102); Mean Platelet Volume 10.5 FL (9.6-12.0); Monocytes % 7.4 % (1.7-12.7); Neutrophils % 62.8 % (38.7-73.9); Platelet Count 140 T/CUMM (130-400); Red Blood Count 2.81 MC/CUMM (3.8-5.5); Red Cell Distribution Width 15.7 % (9.3-17.3)
[2020-03-10 07:52] LABS: Calcium 7.8 MG/DL (8.5-10.1); Osmolality,Calculated 288.1 MOS/KG (273-304); Potassium 3.6 MMOL/L (3.5-5.1)
[2020-03-10 08:08] LABS: Platelet Estimate Adequate
[2020-03-10 08:09] LABS: Anisocytosis 1+
[2020-03-10] MEDS ORDERED: FUROSEMIDE 20 MG TABLET PO SCH (09:00)
[2020-03-10] MEDS: carvediloL 25 MG TABLET PO SCH ×2 (09:28→22:58)
[2020-03-10] MEDS: FUROSEMIDE 20 MG TABLET PO SCH (09:29)
[2020-03-10] MEDS: HYDROCORTISONE 25 MG SUPP RECTAL SCH ×2 (09:29→23:04)
[2020-03-10] MEDS: MONTELUKAST 10 MG TABLET PO SCH (09:29)
[2020-03-10] MEDS: PANTOPRAZOLE 40 MG VIAL IV SCH ×2 (09:29→23:01)
[2020-03-10] MEDS: HEPARIN 5,000 UNIT/1 ML VIAL SUBCUT SCH ×3 (09:30→23:14)
[2020-03-10] MEDS: POLYETHYLENE GLYCOL POWDER 17 GM PACK PO SCH (09:31)
[2020-03-10] MEDS: DOCUSATE SODIUM 100 MG CAPSULE PO SCH ×2 (09:31→22:57)
[2020-03-10] MEDS: FUROSEMIDE 40 MG/4 ML VIAL IV SCH (09:54)
[2020-03-10] MEDS: MORPHINE 4 MG/1 ML VIAL IV PRN ×2 (19:05→23:36)
[2020-03-10] MEDS: ROSUVASTATIN 10 MG TABLET PO SCH (22:56)
[2020-03-10] MEDS: ISOSORBIDE MONONITRATE 30 MG TABLET PO SCH (22:57)
[2020-03-10] MEDS: CITALOPRAM 40 MG TABLET PO SCH (22:57)
[2020-03-11] MEDS: ALBUTEROL/IPRATROPIUM 3 ML NEB RESP TX SCH ×4 (00:41→18:41)
[2020-03-11 05:45] LABS: Basophils % 0.5 % (0.0-0.8); Eosinophils # 0.2 10*3/uL (0.0-0.87); Eosinophils % 4.4 % (0.00-10.9); Hematocrit 27.1 VOL% (35.7-47.0); Hemoglobin 8.5 GM/DL (12.0-16.0); Immature Granulocytes % 1.5 %; Immature Granulocytes Absolute 0.06 #; Lymphocytes # 0.9 10*3/uL (1.4-4.0); Lymphocytes % 21.5 % (21.3-54.2); Mean Corpuscular HGB Conc 31.4 GM/DL (32-36); Mean Corpuscular Volume 95.4 FL (87-102); Mean Platelet Volume 11.4 FL (9.6-12.0); Monocytes % 10.2 % (1.7-12.7); Neutrophils % 61.9 % (38.7-73.9); Platelet Count 122 T/CUMM (130-400); Red Blood Count 2.84 MC/CUMM (3.8-5.5); Red Cell Distribution Width 15.2 % (9.3-17.3); White Blood Count 4.1 T/CUMM (4-12)
[2020-03-11 06:17] LABS: Calcium 7.8 MG/DL (8.5-10.1); Osmolality,Calculated 301.3 MOS/KG (273-304); Potassium 3.7 MMOL/L (3.5-5.1)
[2020-03-11 06:18] LABS: Hypochromasia 1+; Microcytosis 1+
[2020-03-11 06:19] LABS: Platelet Estimate Adequate
[2020-03-11] MEDS: HEPARIN 5,000 UNIT/1 ML VIAL SUBCUT SCH ×2 (06:34→16:23)
[2020-03-11] MEDS: INSULIN REGULAR 100 UNIT/ML SUBCUT SCH ×3 (07:43→15:49)
[2020-03-11] MEDS: ONDANSETRON 4 MG/2 ML VIAL IV PRN (09:08)
[2020-03-11] MEDS: PANTOPRAZOLE 40 MG VIAL IV SCH (09:11)
[2020-03-11] MEDS: MORPHINE 4 MG/1 ML VIAL IV PRN (10:09)
[2020-03-11] MEDS: HYDROCORTISONE 25 MG SUPP RECTAL SCH (13:20)
[2020-03-11] MEDS: POLYETHYLENE GLYCOL POWDER 17 GM PACK PO SCH (14:06)
[2020-03-11] MEDS: DOCUSATE SODIUM 100 MG CAPSULE PO SCH (14:06)
[2020-03-11] MEDS: FUROSEMIDE 20 MG TABLET PO SCH (14:06)
[2020-03-11] MEDS: MONTELUKAST 10 MG TABLET PO SCH (14:06)
[2020-03-11] MEDS: carvediloL 25 MG TABLET PO SCH (14:07)
[2020-03-12] MEDS: HYDROCORTISONE 25 MG SUPP RECTAL SCH ×3 (00:53→21:47)
[2020-03-12] MEDS: DOCUSATE SODIUM 100 MG CAPSULE PO SCH ×3 (00:55→21:46)
[2020-03-12] MEDS: carvediloL 25 MG TABLET PO SCH ×3 (00:55→21:47)
[2020-03-12] MEDS: ROSUVASTATIN 10 MG TABLET PO SCH ×2 (00:55→21:46)
[2020-03-12] MEDS: CITALOPRAM 40 MG TABLET PO SCH ×2 (00:55→21:46)
[2020-03-12] MEDS: LEVOFLOXACIN INJ 500 MG in PREMIX 1 EACH IV SCH (00:56)
[2020-03-12] MEDS: HEPARIN 5,000 UNIT/1 ML VIAL SUBCUT SCH ×4 (00:56→22:37)
[2020-03-12] MEDS: PANTOPRAZOLE 40 MG VIAL IV SCH ×3 (00:56→21:48)
[2020-03-12] MEDS: ISOSORBIDE MONONITRATE 30 MG TABLET PO SCH ×2 (00:56→21:47)
[2020-03-12] MEDS: INSULIN REGULAR 100 UNIT/ML SUBCUT SCH ×5 (00:57→21:50)
[2020-03-12] MEDS: ALBUTEROL/IPRATROPIUM 3 ML NEB RESP TX SCH ×4 (02:26→19:44)
[2020-03-12 06:10] LABS: Basophils % 0.7 % (0.0-0.8); Eosinophils # 0.1 10*3/uL (0.0-0.87); Hemoglobin 8.5 GM/DL (12.0-16.0); Immature Granulocytes Absolute 0.03 #; Lymphocytes # 0.9 10*3/uL (1.4-4.0); Lymphocytes % 31.4 % (21.3-54.2); Mean Corpuscular HGB Conc 31.5 GM/DL (32-36); Mean Corpuscular Volume 94.4 FL (87-102); Mean Platelet Volume 11.6 FL (9.6-12.0); Monocytes % 10.4 % (1.7-12.7); Neutrophils % 52.5 % (38.7-73.9); Platelet Count 131 T/CUMM (130-400); Red Blood Count 2.86 MC/CUMM (3.8-5.5); Red Cell Distribution Width 14.7 % (9.3-17.3)
[2020-03-12 06:27] LABS: Calcium 7.9 MG/DL (8.5-10.1); Osmolality,Calculated 293.7 MOS/KG (273-304); Potassium 3.8 MMOL/L (3.5-5.1)
[2020-03-12 06:40] LABS: Platelet Estimate Adequate
[2020-03-12 06:41] LABS: Anisocytosis 1+
[2020-03-12] MEDS: FUROSEMIDE 20 MG TABLET PO SCH (08:37)
[2020-03-12] MEDS: POLYETHYLENE GLYCOL POWDER 17 GM PACK PO SCH (08:39)
[2020-03-12] MEDS: MONTELUKAST 10 MG TABLET PO SCH (08:40)
[2020-03-12] MEDS: METOCLOPRAMIDE 10 MG/2 ML VIAL IV SCH (17:59)
[2020-03-12] MEDS: MORPHINE 4 MG/1 ML VIAL IV PRN (21:48)
[2020-03-13] MEDS: METOCLOPRAMIDE 10 MG/2 ML VIAL IV SCH ×4 (00:38→17:33)
[2020-03-13] MEDS: ALBUTEROL/IPRATROPIUM 3 ML NEB RESP TX SCH ×4 (02:12→19:09)
[2020-03-13] MEDS: HEPARIN 5,000 UNIT/1 ML VIAL SUBCUT SCH ×3 (06:10→23:57)
[2020-03-13 06:12] LABS: Basophils % 0.8 % (0.0-0.8); Eosinophils # 0.1 10*3/uL (0.0-0.87); Eosinophils % 3.2 % (0.00-10.9); Hematocrit 26.9 VOL% (35.7-47.0); Hemoglobin 8.7 GM/DL (12.0-16.0); Immature Granulocytes % 0.8 %; Immature Granulocytes Absolute 0.02 #; Lymphocytes # 0.8 10*3/uL (1.4-4.0); Lymphocytes % 31.3 % (21.3-54.2); Mean Corpuscular HGB Conc 32.3 GM/DL (32-36); Mean Corpuscular Volume 93.1 FL (87-102); Mean Platelet Volume 11.8 FL (9.6-12.0); Monocytes % 13.5 % (1.7-12.7); Neutrophils % 50.4 % (38.7-73.9); Platelet Count 131 T/CUMM (130-400); Red Blood Count 2.89 MC/CUMM (3.8-5.5); Red Cell Distribution Width 14.4 % (9.3-17.3); White Blood Count 2.5 T/CUMM (4-12)
[2020-03-13 06:41] LABS: Hypochromasia 1+; Microcytosis 1+
[2020-03-13 06:42] LABS: Platelet Estimate Adequate
[2020-03-13 06:58] LABS: Calcium 8.1 MG/DL (8.5-10.1); Osmolality,Calculated 298.4 MOS/KG (273-304); Potassium 3.8 MMOL/L (3.5-5.1)
[2020-03-13] MEDS: carvediloL 25 MG TABLET PO SCH ×2 (08:46→21:18)
[2020-03-13] MEDS: INSULIN REGULAR 100 UNIT/ML SUBCUT SCH ×4 (08:46→23:26)
[2020-03-13] MEDS: DOCUSATE SODIUM 100 MG CAPSULE PO SCH ×2 (08:46→21:18)
[2020-03-13] MEDS: HYDROCORTISONE 25 MG SUPP RECTAL SCH ×2 (08:46→22:57)
[2020-03-13] MEDS: MONTELUKAST 10 MG TABLET PO SCH (08:46)
[2020-03-13] MEDS: FUROSEMIDE 20 MG TABLET PO SCH (08:46)
[2020-03-13] MEDS: PANTOPRAZOLE 40 MG VIAL IV SCH ×2 (08:47→21:17)
[2020-03-13] MEDS: POLYETHYLENE GLYCOL POWDER 17 GM PACK PO SCH (08:47)
[2020-03-13] MEDS: MORPHINE 4 MG/1 ML VIAL IV PRN ×2 (08:50→16:16)
[2020-03-13] MEDS: ONDANSETRON 4 MG/2 ML VIAL IV PRN (20:20)
[2020-03-13] MEDS: ROSUVASTATIN 10 MG TABLET PO SCH (21:17)
[2020-03-13] MEDS: ISOSORBIDE MONONITRATE 30 MG TABLET PO SCH (21:17)
[2020-03-13] MEDS: CITALOPRAM 40 MG TABLET PO SCH (22:57)
[2020-03-13] MEDS: LEVOFLOXACIN INJ 500 MG in PREMIX 1 EACH IV SCH (22:57)
[2020-03-13] MEDS: METOCLOPRAMIDE 10 MG/10 ML UDCUP PO SCH (22:57)
[2020-03-14] MEDS: ALBUTEROL/IPRATROPIUM 3 ML NEB RESP TX SCH ×4 (00:06→19:28)
[2020-03-14] MEDS ORDERED: MORPHINE 4 MG/1 ML VIAL IV ONE (06:01)
[2020-03-14 06:59] LABS: Basophils % 0.6 % (0.0-0.8); Eosinophils % 1.1 % (0.00-10.9); Hematocrit 28.5 VOL% (35.7-47.0); Hemoglobin 8.7 GM/DL (12.0-16.0); Immature Granulocytes % 0.9 %; Immature Granulocytes Absolute 0.03 #; Lymphocytes # 0.8 10*3/uL (1.4-4.0); Lymphocytes % 22.3 % (21.3-54.2); Mean Corpuscular HGB Conc 30.5 GM/DL (32-36); Mean Corpuscular Volume 97.3 FL (87-102); Mean Platelet Volume 11.9 FL (9.6-12.0); Monocytes % 12.3 % (1.7-12.7); Neutrophils % 62.8 % (38.7-73.9); Platelet Count 138 T/CUMM (130-400); Red Blood Count 2.93 MC/CUMM (3.8-5.5); Red Cell Distribution Width 14.4 % (9.3-17.3); White Blood Count 3.5 T/CUMM (4-12)
[2020-03-14] MEDS ORDERED: KETOROLAC 30 MG/1 ML VIAL IV ONE ×2 (07:11→20:45)
[2020-03-14] MEDS: INSULIN REGULAR 100 UNIT/ML SUBCUT SCH ×4 (07:43→22:48)
[2020-03-14 07:55] LABS: Calcium 8.6 MG/DL (8.5-10.1); Osmolality,Calculated 296.4 MOS/KG (273-304)
[2020-03-14] MEDS: hydrALAZINE 20 MG/1 ML VIAL IV PRN (08:26)
[2020-03-14] MEDS: HEPARIN 5,000 UNIT/1 ML VIAL SUBCUT SCH ×3 (08:27→23:28)
[2020-03-14] MEDS: MONTELUKAST 10 MG TABLET PO SCH (12:14)
[2020-03-14] MEDS: POLYETHYLENE GLYCOL POWDER 17 GM PACK PO SCH (12:14)
[2020-03-14] MEDS: DOCUSATE SODIUM 100 MG CAPSULE PO SCH ×2 (12:14→23:26)
[2020-03-14] MEDS: METOCLOPRAMIDE 10 MG/10 ML UDCUP PO SCH ×4 (12:15→23:27)
[2020-03-14] MEDS: carvediloL 25 MG TABLET PO SCH ×2 (12:15→23:27)
[2020-03-14] MEDS: PANTOPRAZOLE 40 MG VIAL IV SCH ×2 (12:15→23:27)
[2020-03-14] MEDS: HYDROCORTISONE 25 MG SUPP RECTAL SCH ×2 (12:15→23:26)
[2020-03-14] MEDS: FUROSEMIDE 20 MG TABLET PO SCH (12:15)
[2020-03-14] MEDS: CITALOPRAM 40 MG TABLET PO SCH (23:26)
[2020-03-14] MEDS: ISOSORBIDE MONONITRATE 30 MG TABLET PO SCH (23:27)
[2020-03-14] MEDS: ROSUVASTATIN 10 MG TABLET PO SCH (23:27)
[2020-03-15] MEDS: ALBUTEROL/IPRATROPIUM 3 ML NEB RESP TX SCH ×4 (00:10→19:45)
[2020-03-15 06:17] LABS: Basophils % 0.3 % (0.0-0.8); Eosinophils # 0.1 10*3/uL (0.0-0.87); Eosinophils % 1.7 % (0.00-10.9); Hematocrit 27.8 VOL% (35.7-47.0); Hemoglobin 8.6 GM/DL (12.0-16.0); Immature Granulocytes % 0.8 %; Immature Granulocytes Absolute 0.03 #; Lymphocytes % 26.5 % (21.3-54.2); Mean Corpuscular HGB Conc 30.9 GM/DL (32-36); Mean Corpuscular Volume 96.2 FL (87-102); Mean Platelet Volume 11.8 FL (9.6-12.0); Monocytes % 10.2 % (1.7-12.7); Neutrophils % 60.5 % (38.7-73.9); Platelet Count 145 T/CUMM (130-400); Red Blood Count 2.89 MC/CUMM (3.8-5.5); Red Cell Distribution Width 14.6 % (9.3-17.3); White Blood Count 3.6 T/CUMM (4-12)
[2020-03-15 06:30] LABS: Calcium 8.4 MG/DL (8.5-10.1); Osmolality,Calculated 292.5 MOS/KG (273-304); Potassium 4.5 MMOL/L (3.5-5.1)
[2020-03-15] MEDS: ACETAMINOPHEN 325 MG TABLET PO PRN ×3 (06:46→21:30)
[2020-03-15] MEDS: HEPARIN 5,000 UNIT/1 ML VIAL SUBCUT SCH ×3 (06:48→22:06)
[2020-03-15] MEDS: ONDANSETRON 4 MG/2 ML VIAL IV PRN (06:49)
[2020-03-15] MEDS: INSULIN REGULAR 100 UNIT/ML SUBCUT SCH ×4 (07:36→21:25)
[2020-03-15] MEDS: DOCUSATE SODIUM 100 MG CAPSULE PO SCH ×2 (09:42→21:25)
[2020-03-15] MEDS: MONTELUKAST 10 MG TABLET PO SCH (09:42)
[2020-03-15] MEDS: METOCLOPRAMIDE 10 MG/10 ML UDCUP PO SCH ×4 (09:42→21:25)
[2020-03-15] MEDS: FUROSEMIDE 20 MG TABLET PO SCH (09:42)
[2020-03-15] MEDS: carvediloL 25 MG TABLET PO SCH ×2 (09:43→21:25)
[2020-03-15] MEDS: POLYETHYLENE GLYCOL POWDER 17 GM PACK PO SCH (09:43)
[2020-03-15] MEDS: HYDROCORTISONE 25 MG SUPP RECTAL SCH ×2 (09:48→21:26)
[2020-03-15] MEDS: PANTOPRAZOLE 40 MG VIAL IV SCH (09:48)
[2020-03-15] MEDS: PANTOPRAZOLE 40 MG TABLET PO SCH (18:33)
[2020-03-15] MEDS: CITALOPRAM 40 MG TABLET PO SCH (21:25)
[2020-03-15] MEDS: ISOSORBIDE MONONITRATE 30 MG TABLET PO SCH (21:25)
[2020-03-15] MEDS: ROSUVASTATIN 10 MG TABLET PO SCH (21:25)
[2020-03-15] MEDS: LEVOFLOXACIN INJ 500 MG in PREMIX 1 EACH IV SCH (21:40)
[2020-03-16] MEDS: ALBUTEROL/IPRATROPIUM 3 ML NEB RESP TX SCH ×4 (00:32→19:05)
[2020-03-16] MEDS: ACETAMINOPHEN 325 MG TABLET PO PRN ×4 (04:13→21:32)
[2020-03-16 05:48] LABS: Basophils % 0.3 % (0.0-0.8); Eosinophils # 0.1 10*3/uL (0.0-0.87); Eosinophils % 2.2 % (0.00-10.9); Hematocrit 28.7 VOL% (35.7-47.0); Hemoglobin 8.3 GM/DL (12.0-16.0); Immature Granulocytes % 1.9 %; Immature Granulocytes Absolute 0.06 #; Lymphocytes # 1.1 10*3/uL (1.4-4.0); Lymphocytes % 35.3 % (21.3-54.2); Mean Corpuscular HGB Conc 28.9 GM/DL (32-36); Mean Platelet Volume 11.7 FL (9.6-12.0); Monocytes % 10.2 % (1.7-12.7); Neutrophils % 50.1 % (38.7-73.9); Platelet Count 141 T/CUMM (130-400); Red Blood Count 2.87 MC/CUMM (3.8-5.5); Red Cell Distribution Width 14.6 % (9.3-17.3); White Blood Count 3.2 T/CUMM (4-12)
[2020-03-16 06:02] LABS: Osmolality,Calculated 291.5 MOS/KG (273-304); Potassium 4.7 MMOL/L (3.5-5.1)
[2020-03-16] MEDS: HEPARIN 5,000 UNIT/1 ML VIAL SUBCUT SCH ×3 (06:10→23:15)
[2020-03-16] MEDS: PANTOPRAZOLE 40 MG TABLET PO SCH ×2 (06:11→18:41)
[2020-03-16 07:02] LABS: Hypochromasia 1+; Microcytosis 1+; Ovalocytes Slight; Platelet Estimate Adequate
[2020-03-16] MEDS: INSULIN REGULAR 100 UNIT/ML SUBCUT SCH ×4 (08:30→21:33)
[2020-03-16] MEDS: MONTELUKAST 10 MG TABLET PO SCH (09:16)
[2020-03-16] MEDS: carvediloL 25 MG TABLET PO SCH ×2 (09:16→21:33)
[2020-03-16] MEDS: METOCLOPRAMIDE 10 MG/10 ML UDCUP PO SCH ×4 (09:16→21:32)
[2020-03-16] MEDS: FUROSEMIDE 20 MG TABLET PO SCH (09:16)
[2020-03-16] MEDS: DOCUSATE SODIUM 100 MG CAPSULE PO SCH ×2 (09:16→21:33)
[2020-03-16] MEDS: HYDROCORTISONE 25 MG SUPP RECTAL SCH ×2 (09:17→21:34)
[2020-03-16] MEDS: POLYETHYLENE GLYCOL POWDER 17 GM PACK PO SCH (09:17)
[2020-03-16] MEDS: hydrOXYzine HCL 25 MG TABLET PO PRN ×2 (11:54→21:33)
[2020-03-16] MEDS: ONDANSETRON 4 MG/2 ML VIAL IV PRN (17:57)
[2020-03-16] MEDS: CITALOPRAM 40 MG TABLET PO SCH (21:33)
[2020-03-16] MEDS: ISOSORBIDE MONONITRATE 30 MG TABLET PO SCH (21:33)
[2020-03-16] MEDS: ROSUVASTATIN 10 MG TABLET PO SCH (21:33)
[2020-03-17] MEDS: ALBUTEROL/IPRATROPIUM 3 ML NEB RESP TX SCH ×4 (01:13→19:14)
[2020-03-17] MEDS: ACETAMINOPHEN 325 MG TABLET PO PRN ×2 (02:34→07:42)
[2020-03-17] MEDS: PANTOPRAZOLE 40 MG TABLET PO SCH ×2 (06:02→18:22)
[2020-03-17] MEDS: HEPARIN 5,000 UNIT/1 ML VIAL SUBCUT SCH ×3 (06:02→22:01)
[2020-03-17] MEDS: DOCUSATE SODIUM 100 MG CAPSULE PO SCH ×2 (09:02→21:12)
[2020-03-17] MEDS: carvediloL 25 MG TABLET PO SCH ×2 (09:02→21:11)
[2020-03-17] MEDS: MONTELUKAST 10 MG TABLET PO SCH (09:02)
[2020-03-17] MEDS: FUROSEMIDE 20 MG TABLET PO SCH (09:03)
[2020-03-17] MEDS: INSULIN REGULAR 100 UNIT/ML SUBCUT SCH ×4 (09:03→21:12)
[2020-03-17] MEDS: POLYETHYLENE GLYCOL POWDER 17 GM PACK PO SCH (09:04)
[2020-03-17] MEDS: HYDROCORTISONE 25 MG SUPP RECTAL SCH ×2 (09:04→21:12)
[2020-03-17] MEDS: ONDANSETRON 4 MG/2 ML VIAL IV PRN (09:08)
[2020-03-17] MEDS: METOCLOPRAMIDE 10 MG/10 ML UDCUP PO SCH ×4 (09:59→21:11)
[2020-03-17] MEDS: hydrOXYzine HCL 25 MG TABLET PO PRN (11:58)
[2020-03-17] MEDS: traMADol 50 MG TABLET PO PRN ×2 (11:58→21:11)
[2020-03-17] MEDS: ROSUVASTATIN 10 MG TABLET PO SCH (21:11)
[2020-03-17] MEDS: CITALOPRAM 40 MG TABLET PO SCH (21:11)
[2020-03-17] MEDS: ISOSORBIDE MONONITRATE 30 MG TABLET PO SCH (21:11)
[2020-03-18] MEDS: ALBUTEROL/IPRATROPIUM 3 ML NEB RESP TX SCH ×4 (02:07→19:31)
[2020-03-18] MEDS: hydrALAZINE 20 MG/1 ML VIAL IV PRN (04:44)
[2020-03-18] MEDS: PANTOPRAZOLE 40 MG TABLET PO SCH ×2 (06:04→21:42)
[2020-03-18] MEDS: HEPARIN 5,000 UNIT/1 ML VIAL SUBCUT SCH (06:04)
[2020-03-18 06:51] LABS: Calcium 8.3 MG/DL (8.5-10.1); Osmolality,Calculated 291.4 MOS/KG (273-304); Potassium 4.9 MMOL/L (3.5-5.1)
[2020-03-18 07:36] LABS: Basophils % 0.6 % (0.0-0.8); Eosinophils # 0.2 10*3/uL (0.0-0.87); Eosinophils % 4.9 % (0.00-10.9); Hematocrit 29.7 VOL% (35.7-47.0); Immature Granulocytes % 1.4 %; Immature Granulocytes Absolute 0.05 #; Lymphocytes # 1.1 10*3/uL (1.4-4.0); Mean Corpuscular HGB Conc 29.3 GM/DL (32-36); Mean Corpuscular Volume 103.1 FL (87-102); Monocytes % 10.3 % (1.7-12.7); Neutrophils % 50.8 % (38.7-73.9); Platelet Count 157 T/CUMM (130-400); Red Blood Count 2.88 MC/CUMM (3.8-5.5); White Blood Count 3.5 T/CUMM (4-12)
[2020-03-18 07:38] LABS: Hemoglobin 8.7 GM/DL (12.0-16.0)
[2020-03-18] MEDS: traMADol 50 MG TABLET PO PRN (07:40)
[2020-03-18 07:45] LABS: Hypochromasia 1+; Microcytosis 1+; Platelet Estimate Adequate
[2020-03-18] MEDS: INSULIN REGULAR 100 UNIT/ML SUBCUT SCH ×4 (08:14→21:43)
[2020-03-18] MEDS: METOCLOPRAMIDE 10 MG/10 ML UDCUP PO SCH ×5 (08:14→21:42)
[2020-03-18] MEDS: HYDROCORTISONE 25 MG SUPP RECTAL SCH ×2 (08:14→21:42)
[2020-03-18] MEDS: DOCUSATE SODIUM 100 MG CAPSULE PO SCH ×2 (08:14→21:42)
[2020-03-18] MEDS: MONTELUKAST 10 MG TABLET PO SCH ×2 (08:15→15:23)
[2020-03-18] MEDS: FUROSEMIDE 20 MG TABLET PO SCH ×2 (08:15→15:23)
[2020-03-18] MEDS: POLYETHYLENE GLYCOL POWDER 17 GM PACK PO SCH (08:15)
[2020-03-18] MEDS: carvediloL 25 MG TABLET PO SCH ×3 (08:15→21:42)
[2020-03-18] MEDS ORDERED: LIDOCAINE 2% 5 ML VIAL ONE (13:50)
[2020-03-18] MEDS ORDERED: propofoL 200 MG/20 ML VIAL IV ONE (13:50)
[2020-03-18] MEDS ORDERED: ALBUTEROL/IPRATROPIUM 3 ML NEB RESP TX STA (14:03)
[2020-03-18] MEDS ORDERED: FUROSEMIDE 20 MG/2 ML VIAL ONE ×2 (14:16→14:33)
[2020-03-18] MEDS ORDERED: hydrALAZINE 20 MG/1 ML VIAL ONE (14:26)
[2020-03-18] MEDS ORDERED: methylPREDNISolone SOD SUC 125 MG/2 ML VIAL ONE (14:34)
[2020-03-18] MEDS ORDERED: ALBUTEROL/IPRATROPIUM 3 ML NEB RESP TX ONE (14:35)
[2020-03-18] MEDS: LACTATED RINGERS 1,000 ML IV SCH (15:18)
[2020-03-18] MEDS: BUDESONIDE 0.5 MG/2 ML NEB RESP TX SCH (19:31)
[2020-03-18] MEDS: ISOSORBIDE MONONITRATE 30 MG TABLET PO SCH (21:41)
[2020-03-18] MEDS: ROSUVASTATIN 10 MG TABLET PO SCH (21:42)
[2020-03-18] MEDS: CITALOPRAM 40 MG TABLET PO SCH (21:42)
[2020-03-19] MEDS: ALBUTEROL/IPRATROPIUM 3 ML NEB RESP TX SCH ×2 (01:48→07:20)
[2020-03-19] MEDS: traMADol 50 MG TABLET PO PRN (02:54)
[2020-03-19] MEDS: ACETAMINOPHEN 325 MG TABLET PO PRN (06:07)
[2020-03-19] MEDS: BUDESONIDE 0.5 MG/2 ML NEB RESP TX SCH (07:15)
[2020-03-19 08:09] VITALS: BP 180/50
[2020-03-19] MEDS: LACTATED RINGERS 1,000 ML IV SCH (09:02)
[2020-03-19] MEDS: MONTELUKAST 10 MG TABLET PO SCH (09:04)
[2020-03-19] MEDS: INSULIN REGULAR 100 UNIT/ML SUBCUT SCH (09:04)
[2020-03-19] MEDS: HYDROCORTISONE 25 MG SUPP RECTAL SCH (09:04)
[2020-03-19] MEDS: METOCLOPRAMIDE 10 MG/10 ML UDCUP PO SCH (09:04)
[2020-03-19] MEDS: DOCUSATE SODIUM 100 MG CAPSULE PO SCH (09:04)
[2020-03-19] MEDS: carvediloL 25 MG TABLET PO SCH (09:04)
[2020-03-19] MEDS: PANTOPRAZOLE 40 MG TABLET PO SCH (09:04)
[2020-03-19] MEDS: FUROSEMIDE 20 MG TABLET PO SCH (09:04)
[2020-03-19] MEDS: POLYETHYLENE GLYCOL POWDER 17 GM PACK PO SCH (09:05)
[2020-03-19] MEDS ORDERED: hydroCHLOROthiazide 12.5 MG CAPSULE PO SCH (12:00)
== END 2020-03-19 11:27 | disposition home or self-care (01) | DRG 73 ==
LOC: EDBD → EDUNIT# → N.ED 21:40 → N.EDINP 03-08 00:43 → SUATTDRO 03-08 00:43 → N.3E 03-08 01:30 → N.TELEN 03-08 09:52
PROVIDERS: ADMIT Internal Medicine; ATTEND Internal Medicine

== ENCOUNTER 2020-04-01 17:43 | Inpatient (IN) ==
[2020-04-01] MEDS ORDERED: PANTOPRAZOLE 40 MG VIAL IV STA (18:02)
[2020-04-01] MEDS ORDERED: ONDANSETRON 4 MG/2 ML VIAL IV STA (18:02)
[2020-04-01] MEDS ORDERED: ONDANSETRON 4 MG/2 ML VIAL ONE (18:02)
[2020-04-01 18:17] LABS: Eosinophils # 0.1 10*3/uL (0.0-0.87); Eosinophils % 3.5 % (0.00-10.9); Hemoglobin 7.2 GM/DL (12.0-16.0); Lymphocytes # 0.8 10*3/uL (1.4-4.0); Lymphocytes % 33.2 % (21.3-54.2); Mean Corpuscular Volume 99.2 FL (87-102); Mean Platelet Volume 11.9 FL (9.6-12.0); Monocytes % 4.4 % (1.7-12.7); Neutrophils % 58.9 % (38.7-73.9); Platelet Count 109 T/CUMM (130-400); Red Blood Count 2.42 MC/CUMM (3.8-5.5); Red Cell Distribution Width 14.2 % (9.3-17.3); White Blood Count 2.3 T/CUMM (4-12)
[2020-04-01 18:26] LABS: Alanine Aminotransferase 10 U/L (13-56); Albumin 1.7 G/DL (3.4-5.0); Alkaline Phosphatase 77 U/L (45-117); Aspartate Amino Transferase 18 U/L (0-37); Bilirubin,Total < 0.39 MG/DL (0.2-1.0); Blood Urea Nitrogen 53 MG/DL (7-18); Calcium 7.8 MG/DL (8.5-10.1); Carbon Dioxide 23 MMOL/L (21-32); Estimated Glom Filtration Rate 14 ML/MIN; Glucose 125 MG/DL (74-106); Osmolality,Calculated 297.1 MOS/KG (273-304); Potassium 5.5 MMOL/L (3.5-5.1); Sodium 142 MMOL/L (136-145); Total Protein 5.8 G/DL (6.4-8.3)
[2020-04-01] MEDS ORDERED: cefTRIAXone 1,000 MG in SODIUM CHLORIDE 0.9% 100 ML IV STA (18:43)
[2020-04-01] MEDS ORDERED: MORPHINE 4 MG/1 ML VIAL IV STA (20:05)
[2020-04-02] MEDS ORDERED: hydrALAZINE 20 MG/1 ML VIAL IV PRN (00:20)
[2020-04-02] MEDS ORDERED: DEXTROSE 50% 25 GM/50 ML VIAL IV PRN (00:20)
[2020-04-02] MEDS ORDERED: GLUCAGON 1 MG VIAL IM PRN (00:20)
[2020-04-02] MEDS ORDERED: NITROGLYCERIN SL 0.4 MG TABLET SL PRN (00:30)
[2020-04-02 01:14] LABS: Alanine Aminotransferase 10 U/L (13-56); Albumin 1.6 G/DL (3.4-5.0); Alkaline Phosphatase 71 U/L (45-117); Aspartate Amino Transferase 16 U/L (0-37); Bilirubin,Total < 0.39 MG/DL (0.2-1.0); Blood Urea Nitrogen 57 MG/DL (7-18); Calcium 7.5 MG/DL (8.5-10.1); Carbon Dioxide 22 MMOL/L (21-32); Estimated Glom Filtration Rate 15 ML/MIN; Glucose 119 MG/DL (74-106); Osmolality,Calculated 302.8 MOS/KG (273-304); Potassium 5.3 MMOL/L (3.5-5.1); Sodium 144 MMOL/L (136-145); Total Protein 5.6 G/DL (6.4-8.3)
[2020-04-02 01:19] LABS: Eosinophils # 0.1 10*3/uL (0.0-0.87); Eosinophils % 3.3 % (0.00-10.9); Hemoglobin 7.2 GM/DL (12.0-16.0); Immature Granulocytes % 0.4 %; Immature Granulocytes Absolute 0.01 #; Lymphocytes # 0.8 10*3/uL (1.4-4.0); Lymphocytes % 33.7 % (21.3-54.2); Mean Platelet Volume 11.9 FL (9.6-12.0); Monocytes % 4.5 % (1.7-12.7); Neutrophils % 58.1 % (38.7-73.9); Platelet Count 102 T/CUMM (130-400); Red Blood Count 2.45 MC/CUMM (3.8-5.5); White Blood Count 2.5 T/CUMM (4-12)
[2020-04-02 01:40] LABS: Eosinophils 1 % (0-10); Hypochromasia 1+; Lymphocytes 35 % (20-55); Platelet Estimate Adequate; Segmented Neutrophils 62 % (50-85); Total Cells Counted 100
[2020-04-02] MEDS ORDERED: ALBUTEROL/IPRATROPIUM 3 ML NEB RESP TX PRN (01:55)
[2020-04-02] MEDS: PIPERACILLIN/TAZOBACTAM 3,375 MG in SODIUM CHLORIDE 0.9% 100 ML IV SCH ×2 (02:19→12:05)
[2020-04-02] MEDS ORDERED: LEVOFLOXACIN INJ 750 MG in PREMIX 1 EACH IV ONE (04:00)
[2020-04-02] MEDS ORDERED: METOCLOPRAMIDE 10 MG/10 ML UDCUP PO SCH (07:30)
[2020-04-02 08:08] LABS: PT Patient Result 10.9 SECS (9.8-11.9)
[2020-04-02] MEDS: INSULIN LISPRO 100 UNIT/ML SUBCUT SCH ×4 (08:16→22:35)
[2020-04-02 09:45] LABS: Hematocrit 24.7 VOL% (35.7-47.0); Hemoglobin 7.2 GM/DL (12.0-16.0)
[2020-04-02] MEDS: HYDROCORTISONE 25 MG SUPP RECTAL SCH ×2 (10:19→22:36)
[2020-04-02] MEDS: carvediloL 25 MG TABLET PO SCH ×2 (10:19→17:01)
[2020-04-02] MEDS: MONTELUKAST 10 MG TABLET PO SCH (10:20)
[2020-04-02] MEDS: hydroCHLOROthiazide 25 MG TABLET PO SCH (10:20)
[2020-04-02] MEDS: FUROSEMIDE 20 MG TABLET PO SCH (10:20)
[2020-04-02] MEDS: PANTOPRAZOLE 40 MG TABLET PO SCH ×2 (10:20→22:42)
[2020-04-02] MEDS: METOCLOPRAMIDE 10 MG/10 ML UDCUP PO SCH ×3 (12:11→22:35)
[2020-04-02] MEDS: ONDANSETRON 4 MG/2 ML VIAL IV PRN (13:50)
[2020-04-02] MEDS: MORPHINE 4 MG/1 ML VIAL IV PRN ×2 (13:53→20:01)
[2020-04-02 15:56] LABS: Hematocrit 25.9 VOL% (35.7-47.0); Hemoglobin 7.6 GM/DL (12.0-16.0)
[2020-04-02] MEDS: ISOSORBIDE MONONITRATE 30 MG TABLET PO SCH (19:00)
[2020-04-02] MEDS: ROSUVASTATIN 10 MG TABLET PO SCH (22:42)
[2020-04-02] MEDS: ACETAMINOPHEN 325 MG TABLET PO PRN (23:25)
[2020-04-03] MEDS: MORPHINE 4 MG/1 ML VIAL IV PRN ×3 (00:10→08:13)
[2020-04-03] MEDS: PIPERACILLIN/TAZOBACTAM 3,375 MG in SODIUM CHLORIDE 0.9% 100 ML IV SCH ×2 (00:16→12:08)
[2020-04-03] MEDS: ONDANSETRON 4 MG/2 ML VIAL IV PRN (02:23)
[2020-04-03 06:29] LABS: Basophils % 0.3 % (0.0-0.8); Eosinophils # 0.1 10*3/uL (0.0-0.87); Eosinophils % 2.4 % (0.00-10.9); Hematocrit 26.5 VOL% (35.7-47.0); Hemoglobin 7.9 GM/DL (12.0-16.0); Immature Granulocytes % 1.4 %; Immature Granulocytes Absolute 0.04 #; Lymphocytes # 0.9 10*3/uL (1.4-4.0); Mean Corpuscular HGB Conc 29.8 GM/DL (32-36); Mean Corpuscular Volume 98.9 FL (87-102); Mean Platelet Volume 11.2 FL (9.6-12.0); Monocytes % 5.5 % (1.7-12.7); Neutrophils % 60.4 % (38.7-73.9); Platelet Count 148 T/CUMM (130-400); Red Blood Count 2.68 MC/CUMM (3.8-5.5); White Blood Count 2.9 T/CUMM (4-12)
[2020-04-03 06:49] LABS: Albumin 1.7 G/DL (3.4-5.0); Bilirubin,Total 0.4 MG/DL (0.2-1.0); Calcium 8.3 MG/DL (8.5-10.1); Osmolality,Calculated 294.3 MOS/KG (273-304); Total Protein 6.6 G/DL (6.4-8.3)
[2020-04-03] MEDS: INSULIN LISPRO 100 UNIT/ML SUBCUT SCH ×4 (07:30→22:04)
[2020-04-03] MEDS ORDERED: HYDROCORTISONE 2.5% CREAM 30 GM TUBE TOP PRN (08:15)
[2020-04-03] MEDS ORDERED: INFLUENZA VIRUS VACCINE 0.5 ML SYRINGE IM ONE (09:00)
[2020-04-03] MEDS: carvediloL 25 MG TABLET PO SCH ×2 (09:07→19:28)
[2020-04-03] MEDS: METOCLOPRAMIDE 10 MG/10 ML UDCUP PO SCH ×4 (09:07→22:03)
[2020-04-03] MEDS: hydroCHLOROthiazide 25 MG TABLET PO SCH (09:08)
[2020-04-03] MEDS: PANTOPRAZOLE 40 MG TABLET PO SCH ×2 (09:08→22:03)
[2020-04-03] MEDS: FUROSEMIDE 20 MG TABLET PO SCH (09:08)
[2020-04-03] MEDS: MONTELUKAST 10 MG TABLET PO SCH (09:08)
[2020-04-03] MEDS: ISOSORBIDE MONONITRATE 30 MG TABLET PO SCH (19:28)
[2020-04-03] MEDS: ROSUVASTATIN 10 MG TABLET PO SCH (22:03)
[2020-04-04] MEDS: MORPHINE 4 MG/1 ML VIAL IV PRN ×4 (00:28→21:42)
[2020-04-04] MEDS: PIPERACILLIN/TAZOBACTAM 3,375 MG in SODIUM CHLORIDE 0.9% 100 ML IV SCH (00:28)
[2020-04-04] MEDS: LEVOFLOXACIN INJ 500 MG in PREMIX 1 EACH IV SCH (04:35)
[2020-04-04 05:55] LABS: Eosinophils # 0.1 10*3/uL (0.0-0.87); Eosinophils % 2.8 % (0.00-10.9); Hematocrit 22.6 VOL% (35.7-47.0); Hemoglobin 6.8 GM/DL (12.0-16.0); Immature Granulocytes % 0.8 %; Immature Granulocytes Absolute 0.02 #; Lymphocytes # 0.8 10*3/uL (1.4-4.0); Lymphocytes % 33.1 % (21.3-54.2); Mean Corpuscular HGB Conc 30.1 GM/DL (32-36); Mean Corpuscular Volume 99.1 FL (87-102); Mean Platelet Volume 11.1 FL (9.6-12.0); Monocytes % 7.5 % (1.7-12.7); Neutrophils % 55.8 % (38.7-73.9); Platelet Count 141 T/CUMM (130-400); Red Blood Count 2.28 MC/CUMM (3.8-5.5); Red Cell Distribution Width 14.1 % (9.3-17.3); White Blood Count 2.5 T/CUMM (4-12)
[2020-04-04 06:34] LABS: Osmolality,Calculated 298.8 MOS/KG (273-304); Potassium 4.6 MMOL/L (3.5-5.1)
[2020-04-04 06:37] LABS: Band Neutrophils 1 % (0-10); Eosinophils 2 % (0-10); Lymphocytes 22 % (20-55); Platelet Estimate Normal; Segmented Neutrophils 72 % (50-85); Total Cells Counted 100
[2020-04-04 06:38] LABS: Hypochromasia 1+
[2020-04-04] MEDS: INSULIN LISPRO 100 UNIT/ML SUBCUT SCH ×4 (07:37→21:29)
[2020-04-04] MEDS ORDERED: SODIUM CHLORIDE 0.9% 1,000 ML IV PRN (07:40)
[2020-04-04] MEDS: METOCLOPRAMIDE 10 MG/10 ML UDCUP PO SCH ×4 (09:03→21:29)
[2020-04-04] MEDS: PANTOPRAZOLE 40 MG TABLET PO SCH ×2 (09:03→21:28)
[2020-04-04] MEDS: carvediloL 25 MG TABLET PO SCH ×2 (09:03→19:08)
[2020-04-04] MEDS: MONTELUKAST 10 MG TABLET PO SCH (09:03)
[2020-04-04] MEDS: ISOSORBIDE MONONITRATE 30 MG TABLET PO SCH (19:08)
[2020-04-04] MEDS: ROSUVASTATIN 10 MG TABLET PO SCH (21:28)
[2020-04-05] MEDS: MORPHINE 4 MG/1 ML VIAL IV PRN ×2 (01:50→14:41)
[2020-04-05 02:48] LABS: Hematocrit 27.7 VOL% (35.7-47.0); Hemoglobin 8.5 GM/DL (12.0-16.0)
[2020-04-05 03:28] LABS: Calcium 7.9 MG/DL (8.5-10.1); Potassium 4.4 MMOL/L (3.5-5.1)
[2020-04-05 05:51] LABS: Basophils % 0.3 % (0.0-0.8); Eosinophils # 0.1 10*3/uL (0.0-0.87); Eosinophils % 1.8 % (0.00-10.9); Hematocrit 28.2 VOL% (35.7-47.0); Hemoglobin 8.7 GM/DL (12.0-16.0); Immature Granulocytes % 1.5 %; Immature Granulocytes Absolute 0.06 #; Lymphocytes # 1.1 10*3/uL (1.4-4.0); Lymphocytes % 26.3 % (21.3-54.2); Mean Corpuscular HGB Conc 30.9 GM/DL (32-36); Mean Corpuscular Volume 95.9 FL (87-102); Mean Platelet Volume 10.7 FL (9.6-12.0); Monocytes % 7.8 % (1.7-12.7); Neutrophils % 62.3 % (38.7-73.9); Platelet Count 166 T/CUMM (130-400); Red Blood Count 2.94 MC/CUMM (3.8-5.5); Red Cell Distribution Width 15.4 % (9.3-17.3)
[2020-04-05 08:32] LABS: Anisocytosis Slight; Atypical Lymphocytes Few; Hypochromasia Slight; Platelet Estimate Adequate; Polychromasia Slight
[2020-04-05] MEDS: INSULIN LISPRO 100 UNIT/ML SUBCUT SCH ×4 (08:37→20:02)
[2020-04-05] MEDS: METOCLOPRAMIDE 10 MG/10 ML UDCUP PO SCH ×4 (08:37→21:12)
[2020-04-05] MEDS: PANTOPRAZOLE 40 MG TABLET PO SCH ×2 (08:38→21:12)
[2020-04-05] MEDS: carvediloL 25 MG TABLET PO SCH ×2 (08:38→18:13)
[2020-04-05] MEDS: MONTELUKAST 10 MG TABLET PO SCH (08:38)
[2020-04-05] MEDS: ACETAMINOPHEN 325 MG TABLET PO PRN (13:31)
[2020-04-05] MEDS: ISOSORBIDE MONONITRATE 30 MG TABLET PO SCH (18:13)
[2020-04-05] MEDS: ROSUVASTATIN 10 MG TABLET PO SCH (21:12)
[2020-04-06] MEDS: LEVOFLOXACIN INJ 500 MG in PREMIX 1 EACH IV SCH (05:01)
[2020-04-06 06:24] LABS: Basophils % 0.3 % (0.0-0.8); Eosinophils # 0.1 10*3/uL (0.0-0.87); Eosinophils % 2.5 % (0.00-10.9); Hematocrit 28.3 VOL% (35.7-47.0); Hemoglobin 8.8 GM/DL (12.0-16.0); Immature Granulocytes % 1.2 %; Immature Granulocytes Absolute 0.04 #; Lymphocytes % 29.5 % (21.3-54.2); Mean Corpuscular HGB Conc 31.1 GM/DL (32-36); Mean Corpuscular Volume 95.9 FL (87-102); Mean Platelet Volume 11.2 FL (9.6-12.0); Monocytes % 10.2 % (1.7-12.7); Neutrophils % 56.3 % (38.7-73.9); Platelet Count 169 T/CUMM (130-400); Red Blood Count 2.95 MC/CUMM (3.8-5.5); Red Cell Distribution Width 15.1 % (9.3-17.3); White Blood Count 3.3 T/CUMM (4-12)
[2020-04-06 06:40] LABS: Calcium 8.1 MG/DL (8.5-10.1); Osmolality,Calculated 298.7 MOS/KG (273-304)
[2020-04-06] MEDS: METOCLOPRAMIDE 10 MG/10 ML UDCUP PO SCH ×4 (07:04→21:18)
[2020-04-06] MEDS ORDERED: SODIUM CHLORIDE 0.9% 1,000 ML IV ONE (07:56)
[2020-04-06] MEDS: INSULIN LISPRO 100 UNIT/ML SUBCUT SCH ×4 (08:05→21:18)
[2020-04-06] MEDS: PANTOPRAZOLE 40 MG TABLET PO SCH ×2 (09:33→21:18)
[2020-04-06] MEDS: MONTELUKAST 10 MG TABLET PO SCH (09:33)
[2020-04-06] MEDS: carvediloL 25 MG TABLET PO SCH ×2 (09:33→16:28)
[2020-04-06] MEDS: MORPHINE 4 MG/1 ML VIAL IV PRN (12:07)
[2020-04-06] MEDS: ISOSORBIDE MONONITRATE 30 MG TABLET PO SCH (18:16)
[2020-04-06] MEDS: ROSUVASTATIN 10 MG TABLET PO SCH (21:18)
[2020-04-07 05:35] LABS: Basophils % 0.3 % (0.0-0.8); Eosinophils # 0.2 10*3/uL (0.0-0.87); Eosinophils % 5.5 % (0.00-10.9); Hematocrit 27.6 VOL% (35.7-47.0); Hemoglobin 8.5 GM/DL (12.0-16.0); Immature Granulocytes % 1.4 %; Immature Granulocytes Absolute 0.05 #; Lymphocytes # 1.2 10*3/uL (1.4-4.0); Lymphocytes % 31.7 % (21.3-54.2); Mean Corpuscular HGB Conc 30.8 GM/DL (32-36); Mean Corpuscular Volume 96.2 FL (87-102); Mean Platelet Volume 10.7 FL (9.6-12.0); Neutrophils % 50.1 % (38.7-73.9); Platelet Count 154 T/CUMM (130-400); Red Blood Count 2.87 MC/CUMM (3.8-5.5); Red Cell Distribution Width 14.6 % (9.3-17.3); White Blood Count 3.6 T/CUMM (4-12)
[2020-04-07 06:09] LABS: Calcium 7.7 MG/DL (8.5-10.1); Osmolality,Calculated 294.1 MOS/KG (273-304); Potassium 4.1 MMOL/L (3.5-5.1)
[2020-04-07] MEDS ORDERED: MAGNESIUM SULF RIDER 4 GM in PREMIX 1 EACH IV PRN (09:18)
[2020-04-07] MEDS ORDERED: MAGNESIUM SULF RIDER 2 GM in PREMIX 1 EACH IV PRN (09:18)
[2020-04-07] MEDS ORDERED: SODIUM CHLORIDE 0.9% 500 ML IV ONE (09:18)
[2020-04-07] MEDS: INSULIN LISPRO 100 UNIT/ML SUBCUT SCH ×4 (10:01→21:48)
[2020-04-07] MEDS: METOCLOPRAMIDE 10 MG/10 ML UDCUP PO SCH ×4 (10:01→21:47)
[2020-04-07] MEDS: MONTELUKAST 10 MG TABLET PO SCH (10:02)
[2020-04-07] MEDS: PANTOPRAZOLE 40 MG TABLET PO SCH ×2 (10:02→21:48)
[2020-04-07] MEDS: carvediloL 25 MG TABLET PO SCH ×2 (10:03→18:16)
[2020-04-07] MEDS: ROSUVASTATIN 10 MG TABLET PO SCH (21:48)
[2020-04-07] MEDS: ISOSORBIDE MONONITRATE 30 MG TABLET PO SCH (21:48)
[2020-04-07] MEDS: MORPHINE 4 MG/1 ML VIAL IV PRN (23:18)
[2020-04-08] MEDS: LEVOFLOXACIN INJ 500 MG in PREMIX 1 EACH IV SCH (03:19)
[2020-04-08] MEDS: MORPHINE 4 MG/1 ML VIAL IV PRN ×2 (04:08→17:10)
[2020-04-08 04:23] LABS: Basophils % 0.3 % (0.0-0.8); Eosinophils # 0.2 10*3/uL (0.0-0.87); Eosinophils % 4.5 % (0.00-10.9); Hematocrit 27.4 VOL% (35.7-47.0); Hemoglobin 8.6 GM/DL (12.0-16.0); Immature Granulocytes % 0.9 %; Immature Granulocytes Absolute 0.03 #; Lymphocytes % 28.7 % (21.3-54.2); Mean Corpuscular HGB Conc 31.4 GM/DL (32-36); Mean Corpuscular Volume 94.8 FL (87-102); Mean Platelet Volume 10.8 FL (9.6-12.0); Monocytes % 12.2 % (1.7-12.7); Neutrophils % 53.4 % (38.7-73.9); Platelet Count 151 T/CUMM (130-400); Red Blood Count 2.89 MC/CUMM (3.8-5.5); Red Cell Distribution Width 14.3 % (9.3-17.3); White Blood Count 3.5 T/CUMM (4-12)
[2020-04-08 04:37] LABS: Calcium 7.6 MG/DL (8.5-10.1); Osmolality,Calculated 293.1 MOS/KG (273-304); Potassium 4.1 MMOL/L (3.5-5.1)
[2020-04-08] MEDS: INSULIN LISPRO 100 UNIT/ML SUBCUT SCH ×4 (08:35→21:53)
[2020-04-08] MEDS: MONTELUKAST 10 MG TABLET PO SCH (09:08)
[2020-04-08] MEDS: METOCLOPRAMIDE 10 MG/10 ML UDCUP PO SCH ×4 (09:08→21:48)
[2020-04-08] MEDS: PANTOPRAZOLE 40 MG TABLET PO SCH ×2 (09:08→21:48)
[2020-04-08] MEDS: carvediloL 25 MG TABLET PO SCH ×2 (09:09→17:04)
[2020-04-08] MEDS: ZINC OXIDE 16% PASTE 57 GM TUBE TOP SCH ×2 (12:42→21:49)
[2020-04-08] MEDS: ISOSORBIDE MONONITRATE 30 MG TABLET PO SCH (19:11)
[2020-04-08] MEDS: ROSUVASTATIN 10 MG TABLET PO SCH (21:49)
[2020-04-08] MEDS: ACETAMINOPHEN 325 MG TABLET PO PRN (21:56)
[2020-04-09 05:54] LABS: Basophils % 0.3 % (0.0-0.8); Eosinophils # 0.1 10*3/uL (0.0-0.87); Eosinophils % 3.6 % (0.00-10.9); Hematocrit 25.9 VOL% (35.7-47.0); Immature Granulocytes % 0.8 %; Immature Granulocytes Absolute 0.03 #; Lymphocytes # 1.2 10*3/uL (1.4-4.0); Lymphocytes % 29.8 % (21.3-54.2); Mean Corpuscular HGB Conc 30.9 GM/DL (32-36); Mean Corpuscular Volume 95.6 FL (87-102); Mean Platelet Volume 11.2 FL (9.6-12.0); Neutrophils % 52.5 % (38.7-73.9); Platelet Count 135 T/CUMM (130-400); Red Blood Count 2.71 MC/CUMM (3.8-5.5); Red Cell Distribution Width 14.1 % (9.3-17.3); White Blood Count 3.9 T/CUMM (4-12)
[2020-04-09 06:22] LABS: Calcium 7.6 MG/DL (8.5-10.1); Osmolality,Calculated 294.1 MOS/KG (273-304); Potassium 4.3 MMOL/L (3.5-5.1)
[2020-04-09] MEDS: INSULIN LISPRO 100 UNIT/ML SUBCUT SCH ×4 (08:46→21:32)
[2020-04-09] MEDS: MONTELUKAST 10 MG TABLET PO SCH (09:29)
[2020-04-09] MEDS: carvediloL 25 MG TABLET PO SCH ×2 (09:29→17:04)
[2020-04-09] MEDS: ZINC OXIDE 16% PASTE 57 GM TUBE TOP SCH ×2 (09:29→21:33)
[2020-04-09] MEDS: PANTOPRAZOLE 40 MG TABLET PO SCH ×2 (09:29→21:32)
[2020-04-09] MEDS: METOCLOPRAMIDE 10 MG/10 ML UDCUP PO SCH ×4 (09:53→21:32)
[2020-04-09] MEDS: ACETAMINOPHEN 325 MG TABLET PO PRN (18:43)
[2020-04-09] MEDS: ISOSORBIDE MONONITRATE 30 MG TABLET PO SCH (18:43)
[2020-04-09] MEDS: ROSUVASTATIN 10 MG TABLET PO SCH (21:32)
[2020-04-10] MEDS: LEVOFLOXACIN INJ 500 MG in PREMIX 1 EACH IV SCH (04:01)
[2020-04-10] MEDS: ACETAMINOPHEN 325 MG TABLET PO PRN (04:02)
[2020-04-10 07:05] LABS: Basophils % 0.3 % (0.0-0.8); Eosinophils # 0.1 10*3/uL (0.0-0.87); Eosinophils % 3.8 % (0.00-10.9); Hematocrit 25.8 VOL% (35.7-47.0); Immature Granulocytes % 0.8 %; Immature Granulocytes Absolute 0.03 #; Lymphocytes # 0.9 10*3/uL (1.4-4.0); Lymphocytes % 24.1 % (21.3-54.2); Mean Corpuscular Volume 95.2 FL (87-102); Mean Platelet Volume 11.2 FL (9.6-12.0); Monocytes % 12.4 % (1.7-12.7); Neutrophils % 58.6 % (38.7-73.9); Platelet Count 121 T/CUMM (130-400); Red Blood Count 2.71 MC/CUMM (3.8-5.5); White Blood Count 3.7 T/CUMM (4-12)
[2020-04-10] MEDS: INSULIN LISPRO 100 UNIT/ML SUBCUT SCH ×2 (07:22→12:35)
[2020-04-10 07:26] LABS: Calcium 8.1 MG/DL (8.5-10.1); Osmolality,Calculated 293.3 MOS/KG (273-304); Potassium 4.3 MMOL/L (3.5-5.1)
[2020-04-10 07:32] LABS: Platelet Estimate Adequate
[2020-04-10 07:33] LABS: Anisocytosis 2+
[2020-04-10 07:34] LABS: Macrocytosis Slight
[2020-04-10] MEDS: PANTOPRAZOLE 40 MG TABLET PO SCH (09:48)
[2020-04-10] MEDS: MONTELUKAST 10 MG TABLET PO SCH (09:48)
[2020-04-10] MEDS: METOCLOPRAMIDE 10 MG/10 ML UDCUP PO SCH ×2 (09:48→11:56)
[2020-04-10] MEDS: carvediloL 25 MG TABLET PO SCH (09:48)
[2020-04-10] MEDS: ZINC OXIDE 16% PASTE 57 GM TUBE TOP SCH (09:49)
[2020-04-10 11:46] VITALS: BP 143/38
== END 2020-04-10 15:20 | disposition home health service (06) | DRG 377 ==
LOC: EDBD → EDUNIT# → N.ED 17:43 → SUATTDRO 21:15 → N.EDINP 21:15 → N.3E 22:28
PROVIDERS: ADMIT Family Medicine; ATTEND Internal Medicine

== ENCOUNTER 2020-05-04 13:12 | Inpatient (IN) ==
[2020-05-04] MEDS ORDERED: NALOXONE 0.4 MG/ML VIAL ONE ×2 (13:20→13:25)
[2020-05-04] MEDS ORDERED: NALOXONE 0.4 MG/ML VIAL IV STA (13:38)
[2020-05-04 13:42] LABS: Basophils % 0.5 % (0.0-0.8); Eosinophils # 0.2 10*3/uL (0.0-0.87); Eosinophils % 5.5 % (0.00-10.9); Hematocrit 26.8 VOL% (35.7-47.0); Hemoglobin 8.2 GM/DL (12.0-16.0); Immature Granulocytes % 0.5 %; Immature Granulocytes Absolute 0.02 #; Lymphocytes # 1.6 10*3/uL (1.4-4.0); Lymphocytes % 39.3 % (21.3-54.2); Mean Corpuscular HGB Conc 30.6 GM/DL (32-36); Mean Corpuscular Volume 97.5 FL (87-102); Mean Platelet Volume 11.5 FL (9.6-12.0); Monocytes % 8.2 % (1.7-12.7); Platelet Count 141 T/CUMM (130-400); Red Blood Count 2.75 MC/CUMM (3.8-5.5); Red Cell Distribution Width 16.6 % (9.3-17.3); White Blood Count 4.2 T/CUMM (4-12)
[2020-05-04 13:54] LABS: PT Patient Result 10.8 SECS (9.8-11.9); Partial Thromboplastin Time 29.2 SECS (23.9-33.8)
[2020-05-04 14:08] LABS: Alanine Aminotransferase 12 U/L (13-56); Albumin 2.4 G/DL (3.4-5.0); Alkaline Phosphatase 107 U/L (45-117); Aspartate Amino Transferase 14 U/L (0-37); Bilirubin,Total < 0.39 MG/DL (0.2-1.0); Blood Urea Nitrogen 53 MG/DL (7-18); Calcium 7.9 MG/DL (8.5-10.1); Carbon Dioxide 20 MMOL/L (21-32); Estimated Glom Filtration Rate 18 ML/MIN; Glucose 107 MG/DL (74-106); Potassium 4.3 MMOL/L (3.5-5.1); Sodium 143 MMOL/L (136-145); Total Protein 5.9 G/DL (5.0-7.5)
[2020-05-04 14:22] LABS: Bilirubin,Urine Negative (Negative); Blood, Urine Negative (Negative); Glucose,Urine (UA) 50 mg/dL (Negative); Hyaline Casts,Urine 3 /LPF (0-3); Ketones,Urine Negative (Negative); Mucus,Urine Occasional /LPF (Occasional); Nitrite,Urine Negative (Negative); Protein,Urine >=500 MG/DL; RBC,Urine 1 /HPF (0-4); Squamous Epithelial Cell,Urine Occasional /HPF (0-10); Urine Appearance Slightly Hazy (Clear); Urine Color Yellow (Yellow); Urine Specific Gravity 1.015 (1.001-1.035); Urine Urobilinogen < 2.0 EU/DL (0.2-1.0); WBC,Urine 3 /HPF (0-6)
[2020-05-04 14:32] LABS: Barbiturates Screen,Urine Negative (Negative); Benzodiazepines Screen,Urine Negative (Negative); Cannabinoid Screen,Urine Negative (Negative); Opiate Screen,Urine Positive (Negative); Phencyclidine Screen,Urine Negative (Negative)
[2020-05-04] MEDS ORDERED: cefTRIAXone 1,000 MG in SODIUM CHLORIDE 0.9% 100 ML IV STA (15:25)
[2020-05-04] MEDS ORDERED: FUROSEMIDE 100 MG/10 ML VIAL IV STA (15:26)
[2020-05-04] MEDS ORDERED: DEXTROSE 50% 25 GM/50 ML VIAL IV PRN ×2 (16:01)
[2020-05-04] MEDS ORDERED: DOCUSATE SODIUM 100 MG CAPSULE PO PRN (16:01)
[2020-05-04] MEDS ORDERED: GLUCAGON 1 MG VIAL IM PRN ×2 (16:01)
[2020-05-04] MEDS ORDERED: POTASSIUM CHLORIDE RIDER 10 MEQ in PREMIX 1 EACH IV PRN (16:06)
[2020-05-04] MEDS ORDERED: MAGNESIUM SULF RIDER 4 GM in PREMIX 1 EACH IV PRN (16:06)
[2020-05-04] MEDS ORDERED: MAGNESIUM SULF RIDER 2 GM in PREMIX 1 EACH IV PRN (16:06)
[2020-05-04] MEDS ORDERED: NITROGLYCERIN SL 0.4 MG TABLET SL PRN (16:10)
[2020-05-04] MEDS ORDERED: FUROSEMIDE 40 MG/4 ML VIAL ONE (16:21)
[2020-05-04] MEDS ORDERED: cefTRIAXone 1,000 MG VIAL IM SCH (16:30)
[2020-05-04] MEDS: INSULIN LISPRO 100 UNIT/ML SUBCUT SCH ×2 (17:27→21:34)
[2020-05-04] MEDS: FUROSEMIDE 40 MG/4 ML VIAL IV SCH (17:27)
[2020-05-04] MEDS: HEPARIN 5,000 UNIT/1 ML VIAL SUBCUT SCH (18:13)
[2020-05-04] MEDS: METOCLOPRAMIDE 10 MG/10 ML UDCUP PO SCH ×2 (18:15→21:34)
[2020-05-04] MEDS: ALBUTEROL/IPRATROPIUM 3 ML NEB RESP TX SCH (19:26)
[2020-05-04] MEDS: ISOSORBIDE MONONITRATE 30 MG TABLET PO SCH (21:33)
[2020-05-04] MEDS: ROSUVASTATIN 10 MG TABLET PO SCH (21:33)
[2020-05-04] MEDS: carvediloL 25 MG TABLET PO SCH (21:34)
[2020-05-05] MEDS: ALBUTEROL/IPRATROPIUM 3 ML NEB RESP TX SCH ×4 (00:02→19:13)
[2020-05-05] MEDS: FUROSEMIDE 40 MG/4 ML VIAL IV SCH ×3 (00:23→15:54)
[2020-05-05] MEDS: HEPARIN 5,000 UNIT/1 ML VIAL SUBCUT SCH ×3 (00:30→16:37)
[2020-05-05 05:27] LABS: Basophils % 0.3 % (0.0-0.8); Eosinophils # 0.1 10*3/uL (0.0-0.87); Eosinophils % 3.2 % (0.00-10.9); Hematocrit 24.5 VOL% (35.7-47.0); Hemoglobin 7.3 GM/DL (12.0-16.0); Immature Granulocytes % 1.3 %; Immature Granulocytes Absolute 0.04 #; Lymphocytes # 1.1 10*3/uL (1.4-4.0); Lymphocytes % 36.7 % (21.3-54.2); Mean Corpuscular HGB Conc 29.8 GM/DL (32-36); Mean Corpuscular Volume 98.4 FL (87-102); Mean Platelet Volume 11.8 FL (9.6-12.0); Monocytes % 9.3 % (1.7-12.7); Neutrophils % 49.2 % (38.7-73.9); Platelet Count 119 T/CUMM (130-400); Red Blood Count 2.49 MC/CUMM (3.8-5.5); Red Cell Distribution Width 16.3 % (9.3-17.3); White Blood Count 3.1 T/CUMM (4-12)
[2020-05-05 05:49] LABS: Calcium 8.2 MG/DL (8.5-10.1); Osmolality,Calculated 294.3 MOS/KG (273-304); Potassium 4.4 MMOL/L (3.5-5.1); Risk Ratio 2.84; Thyroid Stimulating Hormone 1.98 uIU/ml (0.358-3.74)
[2020-05-05 07:10] LABS: Anisocytosis 1+; Basophilic Stippling Slight; Platelet Estimate Adequate
[2020-05-05 07:11] LABS: Macrocytosis Slight
[2020-05-05] MEDS: INSULIN LISPRO 100 UNIT/ML SUBCUT SCH ×4 (08:00→21:13)
[2020-05-05] MEDS: ASPIRIN EC 81 MG TABLET PO SCH (09:25)
[2020-05-05] MEDS: METOCLOPRAMIDE 10 MG/10 ML UDCUP PO SCH ×4 (09:25→21:14)
[2020-05-05] MEDS: carvediloL 25 MG TABLET PO SCH ×2 (09:26→21:14)
[2020-05-05] MEDS: MONTELUKAST 10 MG TABLET PO SCH (09:26)
[2020-05-05] MEDS: PANTOPRAZOLE 40 MG TABLET PO SCH (09:26)
[2020-05-05] MEDS: metOLazone 2.5 MG TABLET PO SCH (09:27)
[2020-05-05] MEDS: AZITHROMYCIN INJ 500 MG in SODIUM CHLORIDE 0.9% 250 ML IV SCH (09:38)
[2020-05-05] MEDS: ALPRAZolam 0.25 MG TABLET PO PRN ×2 (09:54→21:14)
[2020-05-05 10:22] LABS: Basophils % 0.2 % (0.0-0.8); Eosinophils # 0.1 10*3/uL (0.0-0.87); Eosinophils % 3.2 % (0.00-10.9); Hemoglobin 7.8 GM/DL (12.0-16.0); Immature Granulocytes % 0.7 %; Immature Granulocytes Absolute 0.03 #; Lymphocytes % 23.5 % (21.3-54.2); Mean Corpuscular Volume 99.6 FL (87-102); Mean Platelet Volume 11.2 FL (9.6-12.0); Monocytes % 7.8 % (1.7-12.7); Neutrophils % 64.6 % (38.7-73.9); Red Blood Count 2.61 MC/CUMM (3.8-5.5); Red Cell Distribution Width 16.4 % (9.3-17.3)
[2020-05-05 10:25] LABS: Platelet Count 148 T/CUMM (130-400); White Blood Count 4.1 T/CUMM (4-12)
[2020-05-05 11:19] LABS: Folate 7.3 NG/ML (5.38-24.0); Vitamin B12 791 PG/ML (211-911)
[2020-05-05 11:27] LABS: Sedimentation Rate-Westergren 95 MM/HR (0-30)
[2020-05-05 13:05] LABS: % Iron Saturation 20.2 % (18-50)
[2020-05-05] MEDS: cefTRIAXone 1,000 MG in SYRINGE 1 EACH IV SCH (15:54)
[2020-05-05] MEDS: ROSUVASTATIN 10 MG TABLET PO SCH (21:14)
[2020-05-05] MEDS: ISOSORBIDE MONONITRATE 30 MG TABLET PO SCH (21:14)
[2020-05-06] MEDS: HEPARIN 5,000 UNIT/1 ML VIAL SUBCUT SCH ×3 (00:37→16:43)
[2020-05-06] MEDS: FUROSEMIDE 40 MG/4 ML VIAL IV SCH ×3 (00:37→16:43)
[2020-05-06] MEDS: ALBUTEROL/IPRATROPIUM 3 ML NEB RESP TX SCH ×4 (00:55→18:47)
[2020-05-06] MEDS ORDERED: ACETAMINOPHEN 325 MG TABLET PO PRN (01:38)
[2020-05-06 06:31] LABS: Basophils % 0.3 % (0.0-0.8); Eosinophils # 0.2 10*3/uL (0.0-0.87); Eosinophils % 5.3 % (0.00-10.9); Hematocrit 23.9 VOL% (35.7-47.0); Hemoglobin 7.3 GM/DL (12.0-16.0); Immature Granulocytes % 0.6 %; Immature Granulocytes Absolute 0.02 #; Lymphocytes # 1.4 10*3/uL (1.4-4.0); Lymphocytes % 37.9 % (21.3-54.2); Mean Corpuscular HGB Conc 30.5 GM/DL (32-36); Mean Platelet Volume 12.2 FL (9.6-12.0); Monocytes % 8.7 % (1.7-12.7); Neutrophils % 47.2 % (38.7-73.9); Platelet Count 128 T/CUMM (130-400); Red Blood Count 2.44 MC/CUMM (3.8-5.5); Red Cell Distribution Width 16.6 % (9.3-17.3); White Blood Count 3.6 T/CUMM (4-12)
[2020-05-06 06:50] LABS: Calcium 7.8 MG/DL (8.5-10.1); Osmolality,Calculated 290.5 MOS/KG (273-304); Potassium 3.9 MMOL/L (3.5-5.1)
[2020-05-06] MEDS: INSULIN LISPRO 100 UNIT/ML SUBCUT SCH ×4 (10:31→21:20)
[2020-05-06] MEDS: METOCLOPRAMIDE 10 MG/10 ML UDCUP PO SCH ×4 (10:31→21:21)
[2020-05-06] MEDS: carvediloL 25 MG TABLET PO SCH ×2 (10:32→21:21)
[2020-05-06] MEDS: MONTELUKAST 10 MG TABLET PO SCH (10:32)
[2020-05-06] MEDS: ASPIRIN EC 81 MG TABLET PO SCH (10:32)
[2020-05-06] MEDS: PANTOPRAZOLE 40 MG TABLET PO SCH (10:32)
[2020-05-06] MEDS: metOLazone 2.5 MG TABLET PO SCH (10:33)
[2020-05-06] MEDS: AZITHROMYCIN INJ 500 MG in SODIUM CHLORIDE 0.9% 250 ML IV SCH (10:33)
[2020-05-06 11:17] LABS: Hemoglobin A1 (Alkaline) 98.3 % (96.5-98.5); Hemoglobin A2 (Alkaline) 1.7 % (1.5-3.5)
[2020-05-06] MEDS ORDERED: SODIUM CHLORIDE 0.9% 1,000 ML IV PRN (14:30)
[2020-05-06] MEDS: cefTRIAXone 1,000 MG in SYRINGE 1 EACH IV SCH (14:58)
[2020-05-06] MEDS: ISOSORBIDE MONONITRATE 30 MG TABLET PO SCH (21:21)
[2020-05-06] MEDS: ROSUVASTATIN 10 MG TABLET PO SCH (21:21)
[2020-05-06 23:53] LABS: Hematocrit 25.2 VOL% (35.7-47.0); Hemoglobin 7.4 GM/DL (12.0-16.0)
[2020-05-07] MEDS: FUROSEMIDE 40 MG/4 ML VIAL IV SCH ×4 (00:34→15:40)
[2020-05-07] MEDS: HEPARIN 5,000 UNIT/1 ML VIAL SUBCUT SCH ×4 (00:35→15:39)
[2020-05-07] MEDS: ALBUTEROL/IPRATROPIUM 3 ML NEB RESP TX SCH ×4 (00:38→19:13)
[2020-05-07] MEDS: ACETAMINOPHEN 325 MG TABLET PO PRN ×2 (01:15→15:11)
[2020-05-07] MEDS ORDERED: SODIUM CHLORIDE 0.9% 1,000 ML IV PRN (07:41)
[2020-05-07] MEDS: INSULIN LISPRO 100 UNIT/ML SUBCUT SCH ×4 (09:00→20:35)
[2020-05-07] MEDS: AZITHROMYCIN INJ 500 MG in SODIUM CHLORIDE 0.9% 250 ML IV SCH (09:03)
[2020-05-07] MEDS: METOCLOPRAMIDE 10 MG/10 ML UDCUP PO SCH ×5 (09:05→20:36)
[2020-05-07] MEDS: ASPIRIN EC 81 MG TABLET PO SCH (09:05)
[2020-05-07] MEDS: carvediloL 25 MG TABLET PO SCH ×2 (09:05→20:36)
[2020-05-07] MEDS: PANTOPRAZOLE 40 MG TABLET PO SCH (09:05)
[2020-05-07] MEDS: MONTELUKAST 10 MG TABLET PO SCH (09:05)
[2020-05-07] MEDS: metOLazone 2.5 MG TABLET PO SCH (09:12)
[2020-05-07] MEDS: cefTRIAXone 1,000 MG in SYRINGE 1 EACH IV SCH (15:06)
[2020-05-07 15:48] LABS: Hemoglobin 8.3 GM/DL (12.0-16.0)
[2020-05-07] MEDS: ROSUVASTATIN 10 MG TABLET PO SCH (20:36)
[2020-05-07] MEDS: ISOSORBIDE MONONITRATE 30 MG TABLET PO SCH (20:36)
[2020-05-07] MEDS: ALPRAZolam 0.25 MG TABLET PO PRN (23:48)
[2020-05-08] MEDS: ALBUTEROL/IPRATROPIUM 3 ML NEB RESP TX SCH ×2 (01:21→07:00)
[2020-05-08] MEDS: HEPARIN 5,000 UNIT/1 ML VIAL SUBCUT SCH ×2 (02:05→09:29)
[2020-05-08] MEDS: FUROSEMIDE 40 MG/4 ML VIAL IV SCH ×2 (02:05→09:12)
[2020-05-08] MEDS: ACETAMINOPHEN 325 MG TABLET PO PRN (02:06)
[2020-05-08 05:53] LABS: Basophils % 0.3 % (0.0-0.8); Eosinophils # 0.2 10*3/uL (0.0-0.87); Eosinophils % 6.1 % (0.00-10.9); Hematocrit 26.1 VOL% (35.7-47.0); Immature Granulocytes % 0.8 %; Immature Granulocytes Absolute 0.03 #; Lymphocytes # 1.4 10*3/uL (1.4-4.0); Lymphocytes % 35.8 % (21.3-54.2); Mean Corpuscular HGB Conc 30.7 GM/DL (32-36); Mean Corpuscular Volume 95.6 FL (87-102); Mean Platelet Volume 12.3 FL (9.6-12.0); Monocytes % 9.2 % (1.7-12.7); Neutrophils % 47.8 % (38.7-73.9); Platelet Count 130 T/CUMM (130-400); Red Blood Count 2.73 MC/CUMM (3.8-5.5); Red Cell Distribution Width 17.5 % (9.3-17.3); White Blood Count 3.8 T/CUMM (4-12)
[2020-05-08 06:15] LABS: Hypochromasia Slight; Microcytosis 1+; Ovalocytes Slight
[2020-05-08 06:16] LABS: Platelet Estimate Adequate
[2020-05-08 06:33] LABS: Calcium 7.9 MG/DL (8.5-10.1); Osmolality,Calculated 287.7 MOS/KG (273-304); Potassium 3.3 MMOL/L (3.5-5.1)
[2020-05-08] MEDS: INSULIN LISPRO 100 UNIT/ML SUBCUT SCH ×2 (07:56→12:23)
[2020-05-08] MEDS: ASPIRIN EC 81 MG TABLET PO SCH (08:48)
[2020-05-08] MEDS: MONTELUKAST 10 MG TABLET PO SCH (08:48)
[2020-05-08] MEDS: METOCLOPRAMIDE 10 MG/10 ML UDCUP PO SCH ×2 (08:48→11:59)
[2020-05-08] MEDS: carvediloL 25 MG TABLET PO SCH (08:48)
[2020-05-08] MEDS: PANTOPRAZOLE 40 MG TABLET PO SCH (08:49)
[2020-05-08] MEDS: metOLazone 2.5 MG TABLET PO SCH (08:49)
[2020-05-08] MEDS: AZITHROMYCIN INJ 500 MG in SODIUM CHLORIDE 0.9% 250 ML IV SCH (09:49)
[2020-05-08] MEDS ORDERED: POTASSIUM CHLORIDE 20 MEQ TABLET PO ONE (11:20)
[2020-05-08 12:22] VITALS: BP 124/78
== END 2020-05-08 15:30 | disposition hospice, home (50) | DRG 291 ==
LOC: EDUNIT# → EDBD → N.ED 13:12 → N.EDINP 16:01 → SUATTDRO 16:01 → N.TELES 16:42
PROVIDERS: ADMIT Internal Medicine; ATTEND Internal Medicine